=== PATIENT | male | born 1960 ===

== ENCOUNTER 2017-02-19 12:48 | Inpatient (IN) ==
[2017-02-19] MEDS ORDERED: SODIUM CHLORIDE 0.9% 500 ML IV STA (13:19)
--- NOTE | 2017-02-19 13:42 | CT Report ---
CT of the head without contrast. Indication: Mental status changes. No prior study. There is generalized atrophy, advanced for the patient's age. There are prominent areas of low density in the periventricular white matter. There is a small focus of encephalomalacia measuring under a centimeter, adjacent to the left lateral ventricle frontal horn, there are areas of encephalomalacia within the thalami bilaterally. There is a small area of encephalomalacia in the periventricular white matter on the right. A similar small hypodensity is seen in the right aspect of the valeri. There is no mass effect or midline shift. There is no evidence of acute hemorrhage. No cortical infarcts are seen at this time. The calvarium is intact. There is mucosal thickening in both maxillary, both ethmoid, and the left frontal sinus. The mastoid air cells are clear. Impression: 1. Generalized atrophy, advanced for the patient's age. 2. White matter changes as described above likely consistent with chronic microvascular ischemia. It is advanced for the patient's age, and that could be due to chronic diabetes or uncontrolled hypertension. Chronic lacunar infarcts are seen in the basal ganglia, thalamus, and right aspect of the valeri. 3. Note that in a patient of this age, other causes for white matter low density should also be considered including vasculitis, and demyelinating processes as well as post viral and postinflammatory entities. The CT exam was performed using one or more of the following dose reduction techniques: Automated exposure control, adjustment of the mA and/or kV according to patient size, or use of iterative reconstruction technique. PROCEDURE INTERPRETED AT [facility] DEPARTMENT OF RADIOLOGY Final Report Signed by: Dr. Doerne Daly
--- NOTE | 2017-02-19 13:45 | XRay Report ---
Portable chest. Indication: Altered mental status. Comparison: July 27, 2011. The heart is normal in size. The pulmonary vasculature is normal. The lung pulliam are clear. Degenerative changes of the spinal column and shoulders. Impression: No acute abnormality. PROCEDURE INTERPRETED AT [facility] DEPARTMENT OF RADIOLOGY Final Report Signed by: Dr. Dorene Daly
[2017-02-19 14:01] LABS: ABG Base Excess -4.8 MMOL/L (-2.5-2.5); ABG HCO3 20.4 MMOL/L (20-26); ABG Oxygen Saturation 92.9 % (95-100); ABG PCO2 34.7 MM HG (35-48); ABG PH 7.361 (7.35-7.45); ABG PO2 73.1 MM HG (80-95); ABG TCO2 15.6 MMOL/L (23-27); Allen Test Positive; Pt O2 Delivery Device Room Air
--- NOTE | 2017-02-19 14:06 | EKG Report ---
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
[2017-02-19 14:08] LABS: Basophils # 0.1 10*3/uL (0.0-0.2); Basophils % 0.3 % (0.0-0.8); Immature Granulocytes % 0.6 %; Lymphocytes # 1.7 10*3/uL (1.4-4.0); Lymphocytes % 10.5 % (21.2-54.2); Mean Corpuscular HGB Conc 33.5 GM/DL (32-36); Mean Corpuscular Hemoglobin 29 PG (27-34); Mean Corpuscular Volume 85.6 FL (87-102); Mean Platelet Volume 12.3 FL (9.6-12.0); Monocytes # 1.3 10*3/uL (0.11-0.8); Monocytes % 7.9 % (1.7-12.7); NRBC # 0.02 10*3/uL; Neutrophils # 12.9 10*3/uL (1.4-7.4); Neutrophils % 80.7 % (38.7-73.9); Platelet Count 163 T/CUMM (130-400); Red Blood Count 7.15 MC/CUMM (3.8-5.5); Red Cell Distribution Width 14.7 % (9.3-17.3)
[2017-02-19 14:11] LABS: Hematocrit 61.2 VOL% (42.0-52.0); Hemoglobin 20.5 GM/DL (14.0-18.0)
[2017-02-19 14:19] LABS: INR 1.2
[2017-02-19 14:29] LABS: Ammonia 18 UMOL/L (11-32)
[2017-02-19 14:37] LABS: Alanine Aminotransferase 33 U/L (16-61); Albumin 3.2 G/DL (3.4-5.0); Alkaline Phosphatase 74 U/L (45-117); Aspartate Amino Transferase 46 U/L (0-37); Blood Urea Nitrogen 51 MG/DL (7-18); CKMB % 2.5 %; Calcium 8.4 MG/DL (8.5-10.1); Glucose 299 MG/DL (74-106); Magnesium 2.4 MG/DL (1.8-2.4); Osmolality,Calculated 294.1 MOS/KG (273-304); Potassium 4.1 MMOL/L (3.5-5.1); Sodium 135 MMOL/L (136-145)
--- NOTE | 2017-02-19 14:37 | Emergency Department Note ---
Trey Newman Ashley, am scribing for, and in the presence of, Yoav Saldivar MD 13:30. Janna Newman Charles R, MD, personally performed the services described in this documentation, ascribed by Angi Yang in my presence, and it is both accurate and complete 436 . Arrival - Arrival Chief Complaint: Altered Mental Status ED Nursing Triage Note: pt was sent from [facility] for low bp and alt loc. pt took ultram 100mg and an extra of his bp meds this am. pt is slow to answer questions Mode of Arrival: Stretcher Limitations: No Limitations Source: Patient Time Seen by Provider: 02/19/17 13:07 - History of Present Illness HPI Narrative: Ms. Urias, a 56 year old male with left-sided hemiparesis secondary to prior CVA , presents from the [facility] with confusion and abnormal BP after reportedly taking 2 100mg Ultram and an extra dose of his BP medication. He presented to the clinic this morning to be evaluated for knee pain. In the ED, he is confused and reports only taking 1 Ultram. He denies any pain in the ED and reports that his left sided weakness is unchanged. There is no one present with the patient to determine the patient's mental baseline. Onset (ago): hour(s) (this morning) Consistency: constant Severity: moderate Quality: other (confusion) Home Medications: Home Medications Medication Instructions Recorded Confirmed Type Aspirin [Ecotrin] 81 mg PO DAILY 02/19/17 02/19/17 History Carvedilol [Coreg] 3.125 mg PO BID 02/19/17 02/19/17 History Diclofenac 1% Gel [Voltaren 1% Gel] 1 applic TOP QID 02/19/17 02/19/17 History Fosinopril Sodium 20 mg PO DAILY 02/19/17 02/19/17 History Glyburide/Metformin HCl 1 each PO DAILY 02/19/17 02/19/17 History [Glyburide-Metformin 5-500 mg] Simvastatin [Zocor] 10 mg PO BEDTIME 02/19/17 02/19/17 History Tramadol HCl [Tramadol Tab] 50 mg PO Q6H PRN 02/19/17 02/19/17 History Review of System - Review of System Constitutional: Absent: chills, fever Eyes: Absent: vision change Head/Ears/Nose/Throat: Present: see HPI Respiratory: Absent: cough, respiratory distress Cardiovascular: Absent: chest pain, palpitations Gastrointestinal: Absent: abdominal pain, vomiting, diarrhea Genitourinary male: Present: as per HPI Musculoskeletal: Absent: back pain, neck pain Neurological: Present: weakness (Chronic left sided hemiparesis), confusion. Absent: headache, numbness Psychiatric: Present: as per HPI Endocrine: Present: as per HPI Hematological/Lymphatic: Present: as per HPI Allergic/Immunologic: Present: as per HPI Medical,Surgical,& Family Hx - Medical History Cardio: History of: Hypertension Neurology: History of: Cerebrovascular Accident Endocrine: History of: Diabetes Mellitus (NIDDM) - Social History Smoking Status: Never smoker Frequency of Alcohol Use: None Type of Drug Use: None Exam Vital Signs: Vital Signs Temperature 97.0 F L 02/19/17 12:54 Pulse Rate 85 02/19/17 12:54 Respiratory Rate 18 02/19/17 12:55 Blood Pressure 156/105 02/19/17 12:54 O2 Sat by Pulse Oximetry 93 L 02/19/17 12:54 - General General appearance: alert, in no apparent distress - Head Head exam: Present: atraumatic, normocephalic - Eye Eye exam: Present: normal appearance, PERRL, EOMI - ENT ENT exam: Present: mucous membranes moist, normal external ear exam, other ( poor dentition) - Neck Neck exam: Present: normal inspection, full ROM, trachea midline. Absent: tenderness - Chest Chest inspection: Present: normal inspection, symmetric chest wall rise - Respiratory Respiratory exam: Present: normal lung sounds bilaterally. Absent: rales, rhonchi, wheezes - Cardiovascular Cardiovascular exam: Present: regular rate, normal rhythm, normal heart sounds - Abdominal Exam Abdominal exam: Present: soft. Absent: distention, tenderness, rigidity - Back Exam Back exam: Present: normal inspection, full ROM - Neurological Exam Neurological exam: Present: alert, CN II-XII intact, other (Slight L Pronator Drift and mild chronic LUE hemiparesis from previous CVA. Oriented to person, time, and season, but not to month or place. Right side motor strength is normal.) - Psychiatric Psychiatric exam: Present: normal mood - Skin Skin exam: Present: warm, dry, normal color Course - Consultations Consultation #1: Medicine Service Time: 14:30 (Discussed patient history and findings. Accepts admission.) Results - Labs CBC & BMP: 02/19/17 13:53 02/19/17 13:53 Lab Results: I have reviewed the patients labs - Diagnostic Findings Procedure: Chest x-ray: report reviewed by me (NAD), CT: report reviewed by me ( CT Head demonstrates NAD, but reports chronic microvascular changes, advanced atrophy for age, low density white matter that is advanced for his age, and chronic lacunar infarcts.) Disposition Clinical Impression: Altered mental status, Leukocytosis, Polycythemia, Renal failure, Hyperglycemia , Elevated troponin, History of CVA with left-sided weakness, Confusion Case discussed with: patient Disposition: Still a Patient Condition: Stable Time of Disposition: 14:37
[2017-02-19 14:39] LABS: Troponin I Only 0.139 NG/ML (0.00-0.045); Troponin I Only 0.145 NG/ML (0.00-0.045)
[2017-02-19 14:49] LABS: Prolactin 23.8 NG/ML
[2017-02-19 15:10] LABS: Sedimentation Rate-Westergren 2 MM/HR (0-20)
[2017-02-19 15:15] LABS: PT Patient Result 10.9 SECS
[2017-02-19 15:46] LABS: Apearance,Urine Slightly Hazy (Clear); Bacteria,Urine Occasional /HPF (Few); Bilirubin,Urine Negative (Negative); Blood, Urine Negative (Negative); Glucose,Urine (UA) 50 mg/dL (Negative); Ketones,Urine Negative (Negative); Mucus,Urine Occasional /LPF (Occasional); Nitrite,Urine Negative (Negative); Protein,Urine 100 MG/DL; Squamous Epithelial Cell,Urine Occasional /HPF (0-10); Urine Color Amber (Yellow); Urine Specific Gravity 1.018 (1.001-1.035); WBC,Urine 4 /HPF (0-6)
[2017-02-19 15:53] LABS: Barbiturates Screen,Urine Negative (Negative); Benzodiazepines Screen,Urine Negative (Negative); Cannabinoid Screen,Urine Negative (Negative); Opiate Screen,Urine Negative (Negative); Phencyclidine Screen,Urine Negative (Negative)
[2017-02-19] MEDS ORDERED: ACETAMINOPHEN 325 MG TABLET PO PRN (16:00)
[2017-02-19] MEDS ORDERED: DEXTROSE 50% 25 GM/50 ML VIAL IV PRN (16:00)
[2017-02-19] MEDS ORDERED: GLUCAGON 1 MG VIAL IM PRN (16:00)
[2017-02-19] MEDS ORDERED: LACTULOSE 20 GM/30 ML UDCUP PO PRN (16:00)
[2017-02-19] MEDS ORDERED: ONDANSETRON 4 MG/2 ML VIAL IV PRN (16:00)
[2017-02-19] MEDS ORDERED: ALBUTEROL/IPRATROPIUM 3 ML NEB RESP TX PRN (16:05)
--- NOTE | 2017-02-19 16:15 | Hospitalist History & Physical ---
Assessment and Plan (1) Altered mental status Status: Acute Assessment and plan: 1)altered mental status- he denies this and we have no one to provide baseline at this time. [facility] suggested that it may be due to too much tramadol. Hold pain meds or other sensorium altering meds. Monitor. consult neurology. consider MRI. get LP. check CO. DDX: meds, vascular dementia, TRAFFIC I MANAGER infection, other infection, ACS 2)polycythemia with leukocytosis- consult heme. He has had this for several years, non smoker. Check MARYLIN 2 mutation and EPO level. check renal US and carboxyhemogolbin also. 3)renal failure- of unknown duration- hydrate, recheck. get renal US, urine hsa glucose and protein. consult nephrology. 4)old strokes- he denies new symptoms. gets around ok. 5)elevated troponins- denies any cardiac type symptoms. tele monitor, get EKG in am, start asa, monitor BP, repeat troponin. 6)hypotension- hasn't been a problem here- monitor. 7)elevated lactic acid- does not appear to be septic, cultures drawn. repeat after hydration and may be due to renal failure. 8)leukocytosis/confusion- BCx drawn. No focus of infection seen, afebrile. with AMS could have TRAFFIC I MANAGER infection- order LP. begin vanc, ceftriaxone, and amp now. Current Visit: Yes (2) Diabetes Status: Acute Current Visit: Yes (3) H/O: stroke with residual effects Status: Acute Current Visit: Yes (4) Leukocytosis Status: Acute Current Visit: Yes (5) Polycythemia Status: Acute Current Visit: Yes (6) Renal failure Status: Acute Current Visit: Yes (7) Elevated troponin Status: Acute Current Visit: Yes History of Present Illness Chief complaint: "I'm fine" History of present illness: Mr. Urias is a 56 year old male sent from [facility] ER to our ER where I saw him for altered mental status. He denies any problems other than sore right kneecap. He was sent for confusion and altered mental status which he denies. His baseline is unknown as no comparative history was provided by [facility] and there is no one here with him. He says he lives with his blind girlfriend. He sees doctors at [facility]. He denies starting any new medicines. The [facility] said that he probably took too many tramadol and even extra BP pill today. On eval there he was hypotensive, though here he is not. He says he has had a stroke that left him with right side weakness. He was able to walk to bathroom and use it independently. He drags his right leg a bit. Denies cardiac history, no smoking, no alcohol, no illicit drugs. He is able to tell me he takes meds for diabetes and HTN, though not the names or doses. No dysuria or urinary hesitancy or frequency. No nausea, vomiting, diarrhea, or weight loss. No cough or shortness of breath. No chest pain, dizziness or palpitations. No headaches or seizures. No sinus congestion, no rhinnorhea. No rash, or pruritis. No history of cancer or anemia or blood problems. No history of clots. In Er his labs show renal failure or unknown chronicity- suspect primarily chronic. Also troponins mildly elevated. CT brain shows old stroke and microvascular changes and demyelinating disease and vasculitis included in the differential. He agrees to stay. Home Medications Medication Instructions Recorded Confirmed Type Aspirin [Ecotrin] 81 mg PO DAILY 02/19/17 02/19/17 History Carvedilol [Coreg] 3.125 mg PO BID 02/19/17 02/19/17 History Diclofenac 1% Gel [Voltaren 1% Gel] 1 applic TOP QID 02/19/17 02/19/17 History Fosinopril Sodium 20 mg PO DAILY 02/19/17 02/19/17 History Glyburide/Metformin HCl 1 each PO DAILY 02/19/17 02/19/17 History [Glyburide-Metformin 5-500 mg] Simvastatin [Zocor] 10 mg PO BEDTIME 02/19/17 02/19/17 History Tramadol HCl [Tramadol Tab] 50 mg PO Q6H PRN 02/19/17 02/19/17 History Medical,Surgical,& Family Hx - Medical History Cardio: History of: Hypertension Neurology: History of: Cerebrovascular Accident Endocrine: History of: Diabetes Mellitus (NIDDM) Hematology: History of: Blood Disorders (HCT was 20 on admit in 2010) - Family History Family History: Reports;: Family Diabetes Denies;: Family Cancer - Social History Smoking Status: Never smoker Frequency of Alcohol Use: None Type of Drug Use: None Marital Status: Single Lives With:: Significant Other Functional capacity: independent ambulation 12 point system: reviewed and no additional remarkable complaints except as stated Exam - Constitutional General appearance: no acute distress, over weight - Head Head exam: Present: other (mild right face droop) - Eye Eye exam: Present: EOMI. Absent: scleral icterus Pupils: Present: ELIDA - ENT ENT exam: Present: normal external ear exam. Absent: normal oropharynx (poor dentition) - Neck Neck exam: Present: other (no carotid bruits). Absent: lymphadenopathy, thyromegaly - Respiratory Respiratory exam: Present: clear to auscultation bilaterally - Cardiovascular Cardiovascular exam: Present: regular rate and rhythm. Absent: carotid bruit, diastolic murmur, systolic murmur - GI/Abdominal GI/Abdominal exam: Present: normal bowel sounds, soft. Absent: tenderness - Extremities Exam Extremities exam: Present: other (no hot swollen joints. No tenderness on palpation of right or left kneecap. ). Absent: calf tenderness, edema - Neurological Exam Neurological exam: Present: alert, other (right leg weaker/dragged a bit when he walked). Absent: oriented X3 (thought it was January, but knew year and where he was and how he got here. ), CN II-XII intact (right face weak (old per patient) and right leg weakness, mild right arm weakness) - Psychiatric Psychiatric exam: Present: normal affect, normal mood. Absent: agitated, anxious - Skin Skin exam: Present: warm, dry Results - Labs CBC & BMP: 02/19/17 13:53 02/19/17 13:53 Lab Results: I have reviewed the past 24 hour labs
[2017-02-19] MEDS ORDERED: VANCOMYCIN INJ 1,000 MG in SODIUM CHLORIDE 0.9% 250 ML IV SCH (17:00)
[2017-02-19] MEDS ORDERED: VANCOMYCIN INJ 1,250 MG in SODIUM CHLORIDE 0.9% 250 ML IV PRN (17:25)
--- NOTE | 2017-02-19 17:49 | Post Interventional Procedure ---
Pre-op diagnosis: altered mental status Post-op diagnosis: same Procedure: lumbar puncture with fluoro Radiologist: Nas Hallman Specimens: none sent (5 cc csf to lab) Estimated blood loss: none Complications: none Condition: stable Description/Findings: 1% local lidocaine after prep with betadine . 20 g needle at L3-4 with 5 cc clear csf collected
--- NOTE | 2017-02-19 17:55 | Interventional Radiology Rpt ---
Exam: IR lumbar puncture diagnostic Date: 02/19/2017 4:33 PM Indication: Altered mental status Comparison: CT brain 02/19/2017. BREONNA Hallman D.O. Fluoroscopy time 45 seconds Findings: The risk and benefits were explained family and informed consent was obtained by verbal phone contact. The patient was placed prone on examination table and the back was prepped with Betadine. 1% local lidocaine was administered. A 20-gauge needle was placed at the L3-4 level with 5 cc of clear CSF fluid collected. Opening pressure is approximately 3 to 4 cm of water without obvious elevated pressure noted. The needle was removed and a bandage was applied. The patient was transferred to his room in satisfactory condition. Estimate blood loss none Condition stable Specimen sent to lab for analysis Complications none Impression: 1. Satisfactory fluoroscopy-guided lumbar puncture. PROCEDURE INTERPRETED AT [facility] DEPARTMENT OF RADIOLOGY Final Report Signed by: Dr. Nas Hallman
[2017-02-19] MEDS: SODIUM CHLORIDE 0.45% 1,000 ML IV SCH (18:02)
[2017-02-19] MEDS: cefTRIAXone 2,000 MG in SODIUM CHLORIDE 0.9% 100 ML IV SCH (18:02)
[2017-02-19] MEDS: INSULIN LISPRO 100 UNIT/ML SUBCUT SCH ×2 (18:35→20:22)
--- NOTE | 2017-02-19 19:33 | Ultrasound Report ---
Exam: US renal Bilateral Date: 02/19/2017 4:25 PM Indication: Renal failure Comparison: None Findings: Right kidney. 9.8 x 5.2 x 5.6 cm. No hydronephrosis perinephric fluid collections with slight increased echogenicity. Left kidney. 9.2 x 5.8 x 5.2 cm. No hydronephrosis perinephric fluid collections with slight increased echogenicity Impression: 1. 1. Mild medical renal disease without obstructive uropathy present. Ultrasound images were stored and captured PROCEDURE INTERPRETED AT [facility] [place] DEPARTMENT OF RADIOLOGY Final Report Signed by: Dr. Nas Hallman
[2017-02-19] MEDS: AMPICILLIN INJ 2,000 MG in SODIUM CHLORIDE 0.9% 100 ML IV SCH (20:19)
[2017-02-19] MEDS: SIMVASTATIN 10 MG TABLET PO SCH (20:21)
[2017-02-19] MEDS: ENOXAPARIN 30 MG/0.3 ML SYRINGE SUBCUT SCH (20:21)
[2017-02-19] MEDS ORDERED: VANCOMYCIN INJ 1,500 MG in SODIUM CHLORIDE 0.9% 500 ML IV ONE (21:00)
[2017-02-19] MEDS ORDERED: CARVEDILOL 3.125 MG TABLET PO SCH (21:00)
[2017-02-19 21:09] LABS: Glucose,CSF 143 MG/DL (40-70)
[2017-02-19 21:20] LABS: Appearance,CSF Clear; Red Blood Cell,CSF < 1 C/CUMM; White Blood Cell,CSF 43 C/CUMM
[2017-02-19 21:21] LABS: Lymphocytes,CSF 78 %; Monocytes,CSF 22 %
[2017-02-19] MEDS: DICLOFENAC 1% GEL 100 GM TUBE TOP SCH (21:42)
[2017-02-20] MEDS: AMPICILLIN INJ 2,000 MG in SODIUM CHLORIDE 0.9% 100 ML IV SCH ×4 (02:08→20:52)
[2017-02-20] MEDS: cefTRIAXone 2,000 MG in SODIUM CHLORIDE 0.9% 100 ML IV SCH ×2 (06:15→18:00)
[2017-02-20 06:27] LABS: Basophils % 0.2 % (0.0-0.8); Eosinophils % 0.1 % (0.00-10.9); Hematocrit 57.9 VOL% (42.0-52.0); Hemoglobin 19.3 GM/DL (14.0-18.0); Immature Granulocytes % 0.6 %; Immature Granulocytes Absolute 0.11 #; Lymphocytes # 2.5 10*3/uL (1.4-4.0); Lymphocytes % 13.1 % (21.2-54.2); Mean Corpuscular HGB Conc 33.3 GM/DL (32-36); Mean Corpuscular Hemoglobin 28 PG (27-34); Mean Corpuscular Volume 84.2 FL (87-102); Mean Platelet Volume 12.9 FL (9.6-12.0); Monocytes # 1.6 10*3/uL (0.11-0.8); Monocytes % 8.6 % (1.7-12.7); Neutrophils # 14.7 10*3/uL (1.4-7.4); Neutrophils % 77.4 % (38.7-73.9); Platelet Count 158 T/CUMM (130-400); Red Blood Count 6.88 MC/CUMM (3.8-5.5); Red Cell Distribution Width 14.6 % (9.3-17.3)
[2017-02-20 06:52] LABS: Calcium 7.9 MG/DL (8.5-10.1); Magnesium 2.2 MG/DL (1.8-2.4); Osmolality,Calculated 303.5 MOS/KG (273-304); Potassium 3.9 MMOL/L (3.5-5.1)
[2017-02-20] MEDS ORDERED: ACYCLOVIR INJ 1,000 MG in SODIUM CHLORIDE 0.9% 250 ML IV SCH (08:00)
--- NOTE | 2017-02-20 08:00 | Hematology Consult ---
Assessment and Plan - Time spent with patient Time spent with patient: Greater than 30 minutes (1) Leukocytosis Status: Acute Assessment and plan: He is very lethargic this morning. It does not appear that his leukocytosis is related to a malignant event. Claude 2 mutation and EPO levels are pending. I will add HIV testing to his orders. His CSF is more consistent with some type of infectious process and he is well covered with broad-spectrum antibiotics. I will hold off on sending her peripheral blood flow cytometry or BCR ABL PCR for now. I do not see any urgent need for phlebotomy as a hemoglobin and hematocrit his level should not lead to any hyperviscosity state. I will continue to follow with you was in the hospital. Current Visit: Yes (2) Altered mental status Status: Acute Current Visit: Yes (3) H/O: stroke with residual effects Status: Acute Current Visit: Yes (4) Polycythemia Status: Acute Current Visit: Yes (5) Renal failure Status: Acute Current Visit: Yes History of Present Illness - Consult Narrative History of present illness: Mr. Urias is a 56 year [place] male with a history of CVA and what appears to be chronic kidney disease who was admitted with altered mental status. Lumbar puncture has been done that show pleocytosis with increased monocytes and lymphocytes. Cultures are pending. CT of his head showed only chronic microvascular changes but no acute findings. Hematology has been consulted for elevated white blood cell count and elevated hematocrit. Differential in his white blood cell count is predominantly neutrophils and monocytes. His hematocrit was around 60 upon admission. There is no atypical blasts noted on the peripheral smear. Claude 2 mutation and EPO levels have been ordered. The patient is unable to provide any history as he is very lethargic this morning. CC: Esperanza Tovar MD - Home Medications and Allergies Home Medications: Home Medications Medication Instructions Recorded Confirmed Type Aspirin [Ecotrin] 81 mg PO DAILY 02/19/17 02/19/17 History Carvedilol [Coreg] 3.125 mg PO BID 02/19/17 02/19/17 History Diclofenac 1% Gel [Voltaren 1% Gel] 1 applic TOP QID 02/19/17 02/19/17 History Fosinopril Sodium 20 mg PO DAILY 02/19/17 02/19/17 History Glyburide/Metformin HCl 1 each PO DAILY 02/19/17 02/19/17 History [Glyburide-Metformin 5-500 mg] Simvastatin [Zocor] 10 mg PO BEDTIME 02/19/17 02/19/17 History Tramadol HCl [Tramadol Tab] 50 mg PO Q6H PRN 02/19/17 02/19/17 History Allergies/Adverse Reactions: Allergies Allergy/AdvReac Type Severity Reaction Status Date / Time No Known Allergies Allergy Unverified 02/19/17 16:41 Medical,Surgical,& Family Hx - Medical History Cardio: History of: Hypertension Neurology: History of: Cerebrovascular Accident No history of: Seizures Endocrine: History of: Diabetes Mellitus (NIDDM) Hematology: History of: Blood Disorders (HCT was 20 on admit in 2010) - Family History Family History: Reports;: Family Diabetes Denies;: Family Cancer - Social History Smoking Status: Never smoker Frequency of Alcohol Use: None Type of Drug Use: None ROS unobtainable: due to mental status Exam - Constitutional Vitals: Period Temp Pulse Resp BP Sys/Spear Pulse Ox Last 24 Hr 96.1 F-97 F 88-97 18-20 107-114/60-70 88-94 General appearance: normal weight, mild distress - Head Head Exam: Present: normocephalic, atraumatic - ENT ENT exam: Present: normal exam - Neck Neck exam: Absent: lymphadenopathy, thyromegaly - Respiratory Respiratory exam: Present: CTAB. Absent: wheezes - Cardiovascular Cardiovascular exam: Absent: JVD - GI/Abdominal GI/Abdominal exam: Present: soft. Absent: ascites, firm, mass - Neurological Exam Neurological exam: Present: altered - Skin Skin exam: Present: other (Cool and damp to the touch) Results - Labs CBC & BMP: 02/20/17 05:48 02/20/17 05:48 Lab Results: I have reviewed the past 24 hour labs - Diagnostic Findings Procedure: CT: report reviewed by me
[2017-02-20] MEDS ORDERED: SODIUM CHLORIDE 0.9% 1,000 ML IV ONE ×4 (08:07→17:51)
--- NOTE | 2017-02-20 08:34 | Hospitalist Progress Note ---
Assessment and Plan - Time spent with patient Time spent with patient: Greater than 30 minutes (1) Altered mental status Status: Acute Assessment and plan: Altered mental status--patient is more lethargic this morning. He will open his eyes to pain. All his pain meds and other sensorium altering meds have been inhaled. Neurology consult is pending. Ammonia level is normal. LP is showing 43 white blood cells, 78 lymphocytes, 22 monocytes, glucose 143 and total protein 84. Patient is on ampicillin, ceftriaxone, vancomycin,and acyclovir. Due to the number of antibiotics patient is on we will order a PICC line for today. Polycythemia with leukocytosis--Dr. Smart from hematology has seen patient this morning. He feels the leukocytosis is not related to a malignant event. He added HIV testing to his Claude 2 mutation and EPO levels. He feels no need for urgent phlebotomy as the hemoglobin and hematocrit level should not lead to any hyperviscosity state. His H&H has minimally dropped this morning. This is most likely due to volume resuscitation. Patient's white count has also risen from 16-19 overnight. Renal failure--patient's creatinine has risen from 3.4-4.2 this morning. His renal ultrasound is showing mild medical renal disease without obstructive uropathy. Sanchez has also been placed. Dr. Best from nephrology has been consulted. Elevated troponins--repeat troponins for this morning are pending. Aspirin has been started, continue to monitor his blood pressure. Hypotension--patient had a period of hypotension with lethargy this morning. His blood pressure seems responding to IV fluids. He is already received 1 L of normal saline and he will get another. Elevated lactic acid--patient's lactic acid has decreased from 4.1 to 2.5. Patient is continuing to get further IV fluids and volume resuscitation. he is on broad-spectrum antibiotics as well. Leukocytosis/confusion--blood cultures are negative. Patient is afebrile. He does look to have some kind of viral or bacterial meningitis per LP results. Patient is on bike, ceftriaxone, ampicillin, and acyclovir has been started this morning. Care has been coordinated with Dr. Tovar. Further recommendations to follow. Current Visit: Yes (2) Leukocytosis Status: Acute Current Visit: Yes (3) Polycythemia Status: Acute Current Visit: Yes (4) Renal failure Status: Acute Current Visit: Yes (5) Elevated troponin Status: Acute Current Visit: Yes (6) Diabetes Status: Acute Current Visit: Yes (7) H/O: stroke with residual effects Status: Acute Current Visit: Yes Hospitalist: Subjective Interval history: Called to the floor by nursing w pt cold and clammy w hypotension. pt was given a liter of ivf and he did seem to respond to this. pt will open eyes to pain. sanchez was placed w some moderate urine output. pt lethargic otherwise. Exam - Constitutional Vitals: Period Temp Pulse Resp BP Sys/Spear Pulse Ox Last 24 Hr 96.1 F-97 F 88-97 18-20 107-114/60-70 88-94 Exam: 56NAM, lethargic, opens eyes to pain chest clear cv rrr abd soft, nt ext no edema Results - Labs CBC & BMP: 02/20/17 05:48 02/20/17 05:48 Lab Results: I have reviewed the past 24 hour labs - Diagnostic Findings Procedure: Ultrasound: report reviewed by me (Mild medical renal disease without obstructive uropathy)
[2017-02-20 08:35] LABS: ABG Base Excess -7.1 MMOL/L (-2.5-2.5); ABG HCO3 18.8 MMOL/L (20-26); ABG Oxygen Saturation 95.2 % (95-100); ABG PCO2 30.4 MM HG (35-48); ABG PH 7.354 (7.35-7.45); ABG PO2 84.9 MM HG (80-95); ABG TCO2 13.6 MMOL/L (23-27); Allen Test Positive
[2017-02-20] MEDS: INSULIN LISPRO 100 UNIT/ML SUBCUT SCH ×4 (08:59→20:55)
[2017-02-20] MEDS ORDERED: amLODIPine 10 MG TABLET PO SCH (09:00)
[2017-02-20] MEDS: DICLOFENAC 1% GEL 100 GM TUBE TOP SCH ×2 (09:20→14:02)
[2017-02-20] MEDS: PANTOPRAZOLE 40 MG TABLET PO SCH (09:20)
[2017-02-20 09:22] LABS: HIV Antigen/Antibody Result Nonreactive (Nonreactive)
[2017-02-20] MEDS: SODIUM CHLORIDE 0.45% 1,000 ML IV SCH (09:26)
--- NOTE | 2017-02-20 09:37 | EKG Report ---
Stationary ECG Study 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
[2017-02-20 09:41] LABS: CKMB % 3.4 %
[2017-02-20 09:42] LABS: Troponin I Only 0.1 NG/ML (0.00-0.045)
[2017-02-20] MEDS: ASPIRIN EC 81 MG TABLET PO SCH (11:40)
[2017-02-20] MEDS: SODIUM CHLORIDE 0.9% 1,000 ML IV SCH ×4 (11:43→22:45)
--- NOTE | 2017-02-20 12:42 | Nephrology Consult Note ---
History of Present Illness Chief complaint: acute on chronic renal failure History of present illness: Mr. Urias is a 56 year old male whom we are asked to see with a rising creatinine he presented with an altered mental status and has been hypotensive, undergone an LP with findings of a pleocytosis and is on multiple antibiotics and antivirals to cover potential etiologies of meningitis. Creatinine yesterday was 3-1/2 today is 4-1/2. Blood pressure when we examining was 85 systolic and he is receiving IV saline. He is obtunded and exhibiting Segundo-Burns respirations. His eyes deviate to the right and the gaze is conjugate. He has no peripheral edema. His chest is clear and his heart without rub or gallop. His abdomen is soft and nontender. Ultrasound is demonstrated no obstruction. Baseline renal function is not known. Impression acute superimposed on probable chronic renal impairment #2 underlying diabetes mellitus #3 [employer] infection question etiology Plan follow vancomycin levels and dose adjust as renal function worsens. To dose adjust acyclovir Home Medications Medication Instructions Recorded Confirmed Type Aspirin [Ecotrin] 81 mg PO DAILY 02/19/17 02/19/17 History Carvedilol [Coreg] 3.125 mg PO BID 02/19/17 02/19/17 History Diclofenac 1% Gel [Voltaren 1% Gel] 1 applic TOP QID 02/19/17 02/19/17 History Fosinopril Sodium 20 mg PO DAILY 02/19/17 02/19/17 History Glyburide/Metformin HCl 1 each PO DAILY 02/19/17 02/19/17 History [Glyburide-Metformin 5-500 mg] Simvastatin [Zocor] 10 mg PO BEDTIME 02/19/17 02/19/17 History Tramadol HCl [Tramadol Tab] 50 mg PO Q6H PRN 02/19/17 02/19/17 History Allergies Allergy/AdvReac Type Severity Reaction Status Date / Time No Known Allergies Allergy Unverified 02/19/17 16:41 Medical,Surgical,& Family Hx - Medical History Cardio: History of: Hypertension Neurology: History of: Cerebrovascular Accident No history of: Seizures Endocrine: History of: Diabetes Mellitus (NIDDM) Hematology: History of: Blood Disorders (HCT was 20 on admit in 2010) - Family History Family History: Reports;: Family Diabetes Denies;: Family Cancer - Social History Smoking Status: Never smoker Frequency of Alcohol Use: None Type of Drug Use: None Review of Systems 12 point system: reviewed and no additional remarkable complaints except as stated Exam - Vital Signs Vital signs: Period Temp Pulse Resp BP Sys/Spear Pulse Ox Last 24 Hr 96.1 F-97.8 F 69-97 12-25 86-114/55-70 88-94 - General Appearance General appearance: well-developed, well-nourished, appears started age EENT: ATNC Neck: no JVD, no thyromegaly, no carotid bruit, supple Respiratory: no kyphosis, no scoliosis Cardiology: no murmurs, no rub, no gallops, no edema, regular rate, regular rhythm, normal S1, normal S2 Gastrointestinal: normoactive bowel sounds, no tenderness, no guarding, no organomegaly Integumentary: no rash, warm and dry Neurologic: no focal deficit, no asterixis, alert and oriented x3, reflexes 2+ and symmetric, gait normal, strength 5/5, obtunded Musculoskeletal: no deformities (Segundo-Burns respiration), no erythema, no cyanosis, no clubbing Results - Labs CBC & BMP: 02/20/17 05:48 02/20/17 05:48 Assessment and Plan (1) Renal failure Status: Acute Assessment and plan: Follow creatinine. Agree with fluid resuscitation in view of hypotension Current Visit: Yes
--- NOTE | 2017-02-20 13:39 | Anesthesia ---
Anesthesia Procedures - Intubation Time out performed intubation: Yes Sedative: other (Propofol) Mg given sedative: 120 Paralytic: Succinylcholine Mg given paralytic: 120 Laryngoscope: Burciaga (2) ET Tube Size: 8 ET Tube Uncuffed: No Tube Secured Depth (cm): 25 Tube Secured Location: teeth Tube Placement Confirmation: visualized tube passing through cords, equal breath sounds bilaterally, no breath sounds over epigastrium, confirmation detector color change Patient tolerated procedure intubation: well Intubation Complications: none Additional Commets: Called for emergency intubation per Dr. Tovar. Stephen procedure well. VSS
[2017-02-20 14:18] LABS: Calcium 6.7 MG/DL (8.5-10.1); Magnesium 1.8 MG/DL (1.8-2.4); Osmolality,Calculated 311.1 MOS/KG (273-304); Potassium 4.1 MMOL/L (3.5-5.1)
[2017-02-20] MEDS ORDERED: HEPARIN LOCK FLUSH 500 UNIT/5 ML SYRINGE IV ONE (14:22)
[2017-02-20] MEDS ORDERED: NOREPINEPHRINE 4 MG/4 ML VIAL IV ONE (14:22)
--- NOTE | 2017-02-20 14:30 | XRay Report ---
Portable chest. Indication: Endotracheal tube placement. Comparison: February 19, 2017. The heart is normal in size. The distal tip of the endotracheal tube is in the right mainstem bronchus. It needs to be retracted 4 to 5 cm. The distal tip of the nasogastric tube is at the GE junction. It needs to be advanced 5 to 6 cm. Mild hypoaeration change has developed at the left lung base. The pulmonary vasculature is normal. The lung pulliam are free of infiltrate. No pneumothorax or pleural effusion. Impression: Tube changes needed as described above. This was discussed with the patient's nurse in the CCU before dictation. Mild hypoaeration has developed at the left base. PROCEDURE INTERPRETED AT [facility] DEPARTMENT OF RADIOLOGY Final Report Signed by: Dr. Dorene Daly
[2017-02-20 14:54] LABS: ABG Base Excess -10.3 MMOL/L (-2.5-2.5); ABG HCO3 16.6 MMOL/L (20-26); ABG Oxygen Saturation 95.7 % (95-100); ABG PCO2 29.3 MM HG (35-48); ABG PH 7.309 (7.35-7.45); ABG PO2 94.1 MM HG (80-95); ABG TCO2 12.3 MMOL/L (23-27)
[2017-02-20] MEDS: PROPOFOL 1,000 MG/100 ML BOTTLE IV SCH (15:03)
[2017-02-20] MEDS: NOREPINEPHRINE 8 MG in SODIUM CHLORIDE 0.9% 242 ML IV SCH ×2 (15:04→16:28)
--- NOTE | 2017-02-20 15:28 | Neurology Consult Note ---
History of Present Illness History of present illness: Patient is unable to provide me any history since he is intubated. History basically obtained from the chart. Mr. Urias is a 56 year [place] male with a history of CVA, chronic kidney disease who was admitted with altered mental status. Lumbar puncture has been done that show total protein of 84, RBC less than 1, WBC 43, lymphocytes 78%, monocytes 22%, glucose 143. Cryptococcus antigen is negative. Gram stain is negative. CT of his head showed only chronic microvascular changes but no acute findings. Hematology has been consulted for elevated white blood cell count and elevated hematocrit. Differential in his white blood cell count is predominantly neutrophils and monocytes. His hematocrit was around 60 upon admission. There is no atypical blasts noted on the peripheral smear. Patient is not on acyclovir, Rocephin and ampicillin. Home Medications Medication Instructions Recorded Confirmed Type Aspirin [Ecotrin] 81 mg PO DAILY 02/19/17 02/19/17 History Carvedilol [Coreg] 3.125 mg PO BID 02/19/17 02/19/17 History Diclofenac 1% Gel [Voltaren 1% Gel] 1 applic TOP QID 02/19/17 02/19/17 History Fosinopril Sodium 20 mg PO DAILY 02/19/17 02/19/17 History Glyburide/Metformin HCl 1 each PO DAILY 02/19/17 02/19/17 History [Glyburide-Metformin 5-500 mg] Simvastatin [Zocor] 10 mg PO BEDTIME 02/19/17 02/19/17 History Tramadol HCl [Tramadol Tab] 50 mg PO Q6H PRN 02/19/17 02/19/17 History Allergies Allergy/AdvReac Type Severity Reaction Status Date / Time No Known Allergies Allergy Unverified 02/19/17 16:41 ROS unobtainable: due to endotracheal tube Medical,Surgical,& Family Hx - Medical History Cardio: History of: Hypertension Neurology: History of: Cerebrovascular Accident No history of: Seizures Endocrine: History of: Diabetes Mellitus (NIDDM) Hematology: History of: Blood Disorders (HCT was 20 on admit in 2010) - Family History Family History: Reports;: Family Diabetes Denies;: Family Cancer - Social History Smoking Status: Never smoker Frequency of Alcohol Use: None Type of Drug Use: None Exam - Constitutional Vitals: Period Temp Pulse Resp BP Sys/Spear Pulse Ox Last 24 Hr 96.1 F-97.8 F 69-117 12-28 78-138/54-89 85-100 Exam: GENERAL: Patient is in no acute distress. NECK: Neck is supple. There is no JVD. No carotid bruits present. No thyroid masses. CVS: First and second heart sounds are normal. There is no S3 present. Regular rate and rhythm. RESPIRATORY: Lungs are clear to auscultation without any rales or rhonchi. ABDOMEN: Soft and non-tender. Bowel sounds are present. There is no hepatosplenomegaly. EXT: There is no palpable edema. Peripheral pulses are present. Skin: No rashes Central Nervous system: General: On vent Speech: On vent Comprehension: Sedated Facial expressions: Normal Cranial Nerves: Pupils are equally reactive to light. Doll's head eye movements are positive. No facial asymmetry is seen. Motor: Bulk and Tone is normal. Strength cannot be assessed Sensory: Cannot be assessed Reflexes: 1+ and symmetrical Cerebellar function: Cannot be assessed Toes: Equivocal Gait: Cannot be assessed Results - Labs CBC & BMP: 02/20/17 05:48 02/20/17 13:43 Assessment and Plan (1) Aseptic meningitis Status: Acute Assessment and plan: Continue current antibiotic coverage for now We will make changes in the antibiotic once more test results are available. Send herpes PCR and TB PCR and CSF. Thank you for the consult Current Visit: Yes
--- NOTE | 2017-02-20 15:51 | Post Interventional Procedure ---
Pre-op diagnosis: Meningitis Post-op diagnosis: same Procedure: Rt subclav central line Flouroscopy: 0.1 min Radiologist: Thompson Vegas Anesthesia: local Specimens: none sent Estimated blood loss: none Complications: none Condition: critical
--- NOTE | 2017-02-20 16:05 | Interventional Radiology Rpt ---
IR cvc insert nt >5, US guide vascular access Indication: Meningitis. Long-term IV antibiotics. CENTRAL LINE Description: A formal timeout was performed. Maximum sterile barrier technique was used. Sonographic evaluation of the right upper chest wall demonstrates patent and compressible subclavian vein. The chest wall was prepped and draped in sterile fashion. 3 cc 1% lidocaine was administered subcutaneously. Under sonographic guidance, a micropuncture needle was advanced into the vein. A captured sonographic image documents the position of the needle. Needle was exchanged over a wire for a vascular dilator. A triple lumen central line was advanced until the tip was at the RA-SVC junction. The catheter depth was noted to be 18 cm. The position of the catheter was confirmed with fluoroscopic guidance and an image stored in PACS. The wire was removed. All 3 ports of the central line were aspirated and flushed with heparinized saline. The device was secured with suture, and a sterile dressing applied. Fluoroscopy: 0.1 minute. 5 captured fluoroscopic images. Impression: 1. Central ready for immediate use. Routine catheter care. 2. After adjustment, endotracheal tube on the final image 4 cm cephalad of harper. PROCEDURE INTERPRETED AT [facility] DEPARTMENT OF RADIOLOGY Final Report Signed by: Thompson Vegas M.D.
--- NOTE | 2017-02-20 18:15 | Pulmonology Consult Note ---
History of Present Illness Chief complaint: Mechanical ventilation. Meningitis. History of present illness: Mr. Urias is a 56 year old male whom I been asked to see in pulmonary consultation to manage his mechanical ventilator. This patient was admitted with altered mental status. He quickly became obtunded. He has had a lumbar puncture. He has meningitis. Organism is not identified yet. He can no longer protect his airway and he required intubation and mechanical ventilation. The remainder review of systems is negative. Allergies. None. Home medicines. See below Hospital medicines. See below Past history high blood pressure CVA [id number] diabetes mellitus hyperlipidemia. Family history is positive for diabetes. Social history. Never smoked. Does not use alcohol. Single. Chest x-ray. My interpretation. Heart size is normal. Pulmonary arteries are normal both hilar areas contain benign calcifications. No definite infiltrates , no masses, no congestive heart failure. ABGs. Mechanical ventilation. FiO2 28%. PH 7.31, PCO2 29.3 PO2 94 and bicarb 16.6. Lab. White count is 19,077 segs 13 lymphs and 8 monos. H&H is 19.3/57.9. Platelets are 158,000. Electrolytes are normal. Creatinine is 4.30. BUN is 69. Glucoses are in the 200s. Hemoglobin A1c is elevated at 8.2. Initial lactic acid was high at 2.5. Calcium is low at 6.7. Magnesium is 1.8. Troponins are 0.139. Total protein is 7. Albumin is low at 3.2. Globulins are elevated at 3.8. Urine shows no evidence of infection. Cerebrospinal fluid cultures and blood cultures are negative. White count was 43 differential was 78 lymphocytes 22 monocytes total protein was elevated at 84 and glucose was 143 which is considerably below blood glucose Labs been reviewed Medicines have been reviewed Physical exam. Vital signs. See below Neck. Nuchal rigidity. Lymphatics. No submandibular cervical supraclavicular or epitrochlear adenopathy. Chest is clear Heart no gallop Abdomen. Nondistended. I did not hear any bowel sounds Extremities. Nothing to suggest deep venous thrombophlebitis. Psychiatric and neurological are impossible. The patient is obtunded. The remainder of the physical exam is noncontributory Impression. 1. Acute meningitis. Etiology undetermined 2. Altered mental status with inability to protect airways. Intubation mechanical ventilation were required. 3. High blood pressure 4. History of CVA 5. Diabetes mellitus. Poor control 6. See past history. Plan. 1. Agree with your orders. 2. Mechanical ventilation weaning protocol 3. Mechanical ventilation physical therapy protocol 4. Deep venous thrombophlebitis prevention protocol 5. Proton pump inhibitor protocol 6. Daily chest x-ray, ABGs, lab 7. See orders Home Medications Medication Instructions Recorded Confirmed Type Aspirin [Ecotrin] 81 mg PO DAILY 02/19/17 02/19/17 History Carvedilol [Coreg] 3.125 mg PO BID 02/19/17 02/19/17 History Diclofenac 1% Gel [Voltaren 1% Gel] 1 applic TOP QID 02/19/17 02/19/17 History Fosinopril Sodium 20 mg PO DAILY 02/19/17 02/19/17 History Glyburide/Metformin HCl 1 each PO DAILY 02/19/17 02/19/17 History [Glyburide-Metformin 5-500 mg] Simvastatin [Zocor] 10 mg PO BEDTIME 02/19/17 02/19/17 History Tramadol HCl [Tramadol Tab] 50 mg PO Q6H PRN 02/19/17 02/19/17 History Allergies Allergy/AdvReac Type Severity Reaction Status Date / Time No Known Allergies Allergy Unverified 02/19/17 16:41 Exam (Pulmonay) H&P - Constitutional Vitals: Period Temp Pulse Resp BP Sys/Spear Pulse Ox Last 24 Hr 96.1 F-97.8 F 69-117 12-28 77-138/50-89 85-100 Medical,Surgical,& Family Hx - Medical History Cardio: History of: Hypertension Neurology: History of: Cerebrovascular Accident No history of: Seizures Endocrine: History of: Diabetes Mellitus (NIDDM) Hematology: History of: Blood Disorders (HCT was 20 on admit in 2010) - Family History Family History: Reports;: Family Diabetes Denies;: Family Cancer - Social History Smoking Status: Never smoker Frequency of Alcohol Use: None Type of Drug Use: None Results - Labs CBC & BMP: 02/20/17 05:48 02/20/17 13:43
[2017-02-20] MEDS: SIMVASTATIN 10 MG TABLET PO SCH (20:52)
[2017-02-20] MEDS: ENOXAPARIN 30 MG/0.3 ML SYRINGE SUBCUT SCH (20:53)
[2017-02-21] MEDS: AMPICILLIN INJ 2,000 MG in SODIUM CHLORIDE 0.9% 100 ML IV SCH ×4 (02:17→20:44)
[2017-02-21 02:38] LABS: Basophils % 0.1 % (0.0-0.8); Hematocrit 52.9 VOL% (42.0-52.0); Hemoglobin 17.5 GM/DL (14.0-18.0); Immature Granulocytes % 0.7 %; Immature Granulocytes Absolute 0.18 #; Lymphocytes # 2.4 10*3/uL (1.4-4.0); Lymphocytes % 8.9 % (21.2-54.2); Mean Corpuscular HGB Conc 33.1 GM/DL (32-36); Mean Corpuscular Hemoglobin 29 PG (27-34); Mean Corpuscular Volume 87.4 FL (87-102); Mean Platelet Volume 12.5 FL (9.6-12.0); Monocytes # 2.5 10*3/uL (0.11-0.8); Neutrophils % 81.3 % (38.7-73.9); Platelet Count 157 T/CUMM (130-400); Red Blood Count 6.05 MC/CUMM (3.8-5.5); Red Cell Distribution Width 13.7 % (9.3-17.3); White Blood Count 27.1 T/CUMM (4-12)
[2017-02-21 03:16] LABS: Band Neutrophils 2 % (0-10); Lymphocytes 3 % (20-55); Myelocytes 2 %; Segmented Neutrophils 90 % (50-85)
[2017-02-21 03:17] LABS: Platelet Estimate Adequate; Total Cells Counted 100
[2017-02-21 03:19] LABS: Calcium 7.2 MG/DL (8.5-10.1); Potassium 4.1 MMOL/L (3.5-5.1)
[2017-02-21 03:39] LABS: ABG Base Excess -10.4 MMOL/L (-2.5-2.5); ABG HCO3 12.4 MMOL/L (20-26); ABG Oxygen Saturation 99.4 % (95-100); ABG PCO2 23.1 MM HG (35-48); ABG PH 7.349 (7.35-7.45); ABG TCO2 13.1 MMOL/L (23-27); Allen Test Positive; Pt O2 Delivery Device Ventilator
[2017-02-21 03:41] LABS: ABG PO2 524.7 MM HG (80-95)
[2017-02-21] MEDS: SODIUM CHLORIDE 0.9% 1,000 ML IV SCH ×5 (04:08→21:44)
[2017-02-21] MEDS: cefTRIAXone 2,000 MG in SODIUM CHLORIDE 0.9% 100 ML IV SCH ×2 (06:24→19:08)
[2017-02-21] MEDS: NOREPINEPHRINE 8 MG in SODIUM CHLORIDE 0.9% 242 ML IV SCH ×2 (06:28→14:20)
--- NOTE | 2017-02-21 07:45 | XRay Report ---
History respiratory failure Comparison 02/20/2017 Mediastinal contour is unchanged. The ET tube is been retracted with the tip now at T3-T4 No confluent infiltrate or pneumothorax seen Impression: Interval repositioning of ET tube otherwise little change PROCEDURE INTERPRETED AT [facility] DEPARTMENT OF RADIOLOGY Final Report Signed by: Dr. Jyothi Daly
--- NOTE | 2017-02-21 08:00 | Hematology Progress Note ---
Assessment and Plan (1) Altered mental status Status: Acute Current Visit: Yes (2) H/O: stroke with residual effects Status: Acute Current Visit: Yes (3) Polycythemia Status: Acute Current Visit: Yes (4) Renal failure Status: Acute Current Visit: Yes Hematology Subjective PN Interval history: Mr. Urias worsened yesterday. When I saw him in the morning he was very lethargic and seemed to become even more obtunded. He is now intubated and on the ventilator. We are still most concerned for some type of meningitis. Thus far all studies have been negative including cryptococcal antigen, bacterial cultures, and HIV studies. He is well covered with broad-spectrum antibiotics. His white blood cell count continues to rise but it is predominantly neutrophils with no visible blasts on the peripheral smear. I still see no reason to suspect a malignant process at this time. His hemoglobin continues to decrease down to normal ranges with IV fluids. Given that he is very sick and I do not have a good feel for the etiology, I will continue to follow him with you to help be certain that no malignant process is causing this. Exam - Constitutional Vitals: Period Temp Pulse Resp BP Sys/Spear Pulse Ox Last 24 Hr 97 F-98.1 F 69-117 12-94 77-151/49-107 85-100 General appearance: normal weight - Head Head Exam: Present: other (Positive ET tube) - Neck Neck exam: Absent: lymphadenopathy, thyromegaly - Respiratory Respiratory exam: Present: CTAB. Absent: wheezes - Cardiovascular Cardiovascular exam: Absent: irregular rhythm, JVD - GI/Abdominal GI/Abdominal exam: Present: soft. Absent: ascites, mass Results - Labs CBC & BMP: 02/21/17 02:24 02/21/17 02:00 Lab Results: I have reviewed the past 24 hour labs
--- NOTE | 2017-02-21 08:53 | Nephrology Progress Note ---
Nephrology - PN: Subj Interval history: Mr. Urias is seen in follow-up of his acute renal failure. Blood pressure is much better after fluid resuscitation and pressure support with levo fed. Chest x-ray demonstrates no evidence of volume overload. On physical exam he does have tight extremities but no pitting edema. He responds minimally but does seem to withdraw to noxious stimuli. Etiology of his meningitis is pending with cultures etc. He did have a predominance of lymphocytes in his CSF. I spoke with family member in the waiting area and he understands that Mr. Urias is quite ill and will require dialysis to bridge him through this illness. Will plan placement of a dialysis catheter and plan on beginning dialysis tomorrow. There is no immediate indication for dialysis today and will be better able to accommodate him tomorrow. Exam (PN)-Nephrology - Vital Signs Vital signs: Period Temp Pulse Resp BP Sys/Spear Pulse Ox Last 24 Hr 97 F-98.1 F 69-117 12-94 77-151/49-107 85-100 - Lab 02/21/17 02:24 02/21/17 02:00 Most recent lab results ABG pH 7.349 (7.35-7.45) L 02/21/17 03:30 ABG pCO2 23.1 MM HG (35-48) L 02/21/17 03:30 ABG pO2 524.7 MM HG (80-95) H 02/21/17 03:30 ABG HCO3 12.4 MMOL/L (20-26) L 02/21/17 03:30 ABG O2 Saturation 99.4 % (95-100) 02/21/17 03:30 Calcium 7.2 MG/DL (8.5-10.1) L 02/21/17 02:00 Magnesium 2.0 MG/DL (1.8-2.4) 02/21/17 02:00 Assessment and Plan (1) Renal failure Status: Acute Assessment and plan: Follow creatinine. Agree with fluid resuscitation in view of hypotension Current Visit: Yes
--- NOTE | 2017-02-21 09:47 | Neurology Progress Note ---
Neurology - PN : Subjective Interval history: Patient seems to be doing okay. No new problems reported. Still sedated on vent. WBC in the serum is 27.1 Exam (Progress Note) - Constitutional Vitals: Period Temp Pulse Resp BP Sys/Spear Pulse Ox Last 24 Hr 97 F-98.1 F 69-117 12-94 77-151/49-107 85-100 Exam: GENERAL: Patient is in no acute distress. NECK: Neck is supple. There is no JVD. No carotid bruits present. No thyroid masses. CVS: First and second heart sounds are normal. There is no S3 present. Regular rate and rhythm. RESPIRATORY: Lungs are clear to auscultation without any rales or rhonchi. ABDOMEN: Soft and non-tender. Bowel sounds are present. There is no hepatosplenomegaly. EXT: There is no palpable edema. Peripheral pulses are present. Skin: No rashes Central Nervous system: General: On vent Speech: On vent Comprehension: Sedated Facial expressions: Normal Cranial Nerves: Pupils are equally reactive to light. Doll's head eye movements are positive. No facial asymmetry is seen. Motor: Bulk and Tone is normal. Strength cannot be assessed Sensory: Cannot be assessed Reflexes: 1+ and symmetrical Cerebellar function: Cannot be assessed Toes: Equivocal Gait: Cannot be assessed Results - Labs CBC & BMP: 02/21/17 02:24 02/21/17 02:00 Assessment and Plan (1) Aseptic meningitis Status: Acute Assessment and plan: Continue current antibiotic coverage for now We will make changes in the antibiotic once more test results are available. Continue current supportive treatment Agree with repeating CAT scan and EEG Current Visit: Yes
[2017-02-21] MEDS: ASPIRIN EC 81 MG TABLET PO SCH (09:57)
[2017-02-21] MEDS: PANTOPRAZOLE 40 MG TABLET PO SCH (09:57)
[2017-02-21] MEDS: INSULIN LISPRO 100 UNIT/ML SUBCUT SCH ×3 (09:57→19:07)
[2017-02-21] MEDS: ACYCLOVIR INJ 1,000 MG in SODIUM CHLORIDE 0.9% 250 ML IV SCH (10:08)
--- NOTE | 2017-02-21 10:23 | Pulmonology Progress Note ---
Pulmonary - PN: Subj Interval history: This is a 56-year-old male whom I saw in pulmonary consultation on 02/20/2017. My impressions were. 1. Acute meningitis. Etiology undetermined 2. Altered mental status with inability to protect airways. Intubation mechanical ventilation were required. 3. High blood pressure 4. History of CVA 5. Diabetes mellitus. Poor control 6. See past history. 02/21/2017. Today's chest x-ray shows no infiltrates. There is no congestive heart failure. Endotracheal tube is in good position. ABGs on FiO2 of 100% shows a pH of 7.349, PCO2 23.1, PO2 of 524.7 and a bicarb of 12.4. Ventilator changes have been made in rate and an FiO2. Electrolytes are normal. Creatinine is 5.3. BUN is 89. H&H is 17.5/52.9. White count is 27,100 with 81 segs 9 lymphs and 9 monocytes. No positive cultures have been reported. Physical exam. Vital signs. See below Psychiatric/neurological. Patient has an altered mental status and cannot be awoken. Neck. No mass. Lymphatics. No submandibular cervical supraclavicular or epitrochlear adenopathy Chest. Mild loose large airway congestion Heart. No gallop Abdomen. Rare bowel sounds Extremities. Nothing to suggest deep venous thrombophlebitis. The remainder the physical exam is negative. Plan. 1. Agree with your orders. 2. Mechanical ventilation weaning protocol 3. Mechanical ventilation physical therapy protocol 4. Deep venous thrombophlebitis prevention protocol 5. Proton pump inhibitor protocol 6. Daily chest x-ray, ABGs, lab 7. See orders and see my note 02/21/2007 Exam (Progress Note) - Constitutional Vitals: Period Temp Pulse Resp BP Sys/Spear Pulse Ox Last 24 Hr 97 F-98.1 F 69-117 12-94 77-151/49-107 85-100 Results - Labs CBC & BMP: 02/21/17 02:24 02/21/17 02:00
--- NOTE | 2017-02-21 10:34 | Physician Query Form ---
CLICK EDIT DOCUMENT TO SELECT QUERY ANSWER --> OK --> SIGN Iris Shannon RN Clinical [employer] W) [phone] (f) [phone] [email or web address] PROVIDERS: Make your selection(s) from the choices in EACH section by typing an "x" and enter comments in the comment section. Please use your independent medical judgment in providing your response. This request does not imply that any particular answer is desired or expected. CLINICAL INDICATORS: (Providers should not edit this section) Pt. admitted with aseptic meningitis. Based on documentation of "Hypotension", BP=78/53. Pt. treated with Levophed and 2 Liter fluid bolus. Please clarify which, if any, of the following is the etiology of the above symptoms and treatment rendered: (x ) Septic shock ( ) Hypovolemic shock ( ) Cardiogenic shock ( ) Hemorrhagic shock ( ) Traumatic shock ( ) Shock due to, please specify etiology: ( ) Shock, unknown etiology ( ) Drug induced, please specify substance: ( ) Iatrogenic Hypotension ( ) Orthostatic Hypotension ( ) Hypotension, unknown etiology ( ) Other, please specify: ( ) Clinically unable to determine COMMENTS: Use of terms such as suspected, likely, or probable (associated with a specific diagnosis that is being evaluated, monitored, or treated as if it exists) are acceptable and can be restated in the discharge summary if not ruled out. MTDD
--- NOTE | 2017-02-21 10:41 | Physician Query Form ---
CLICK EDIT DOCUMENT TO SELECT QUERY ANSWER --> OK --> SIGN Iris Shannon RN Clinical Trust Mail Clerk W) [phone] (f) [phone] [email or web address]: Make your selection(s) from the choices in EACH section by typing an "x" and enter comments in the comment section. Please use your independent medical judgment in providing your response. This request does not imply that any particular answer is desired or expected. CLINICAL INDICATORS: (Providers should not edit this section) Based on documentation of "acute renal failure" and "hypotension", creatinine on admission of 3.40 and increased to 5.3 with a GFR of 12. Blood pressure of 78 /53. Pt. treated with IV Levophed. Clarify which of the following most accurately represents the patient's renal status: (x ) Acute renal failure ( ) Acute renal failure with necrosis ( ) tubular ( ) medullary ( ) cortical ( ) Other, please specify: ( ) Clinically unable to determine COMMENTS: Use of terms such as suspected, likely, or probable (associated with a specific diagnosis that is being evaluated, monitored, or treated as if it exists) are acceptable and can be restated in the discharge summary if not ruled out. MTDD
--- NOTE | 2017-02-21 12:31 | Nephrology Progress Note ---
Nephrology - PN: Subj Interval history: After sterile prep and local anesthesia, a right internal jugular dialysis catheter was placed under ultrasound guidance. Blood return from all 3 lumen. CVP was low. Chest x-rays pending. Catheter was advanced to 19 cm. Exam (PN)-Nephrology - Vital Signs Vital signs: Period Temp Pulse Resp BP Sys/Spear Pulse Ox Last 24 Hr 97 F-98.1 F 86-109 12-94 77-151/49-107 85-100 - Lab 02/21/17 02:24 02/21/17 02:00 Most recent lab results ABG pH 7.349 (7.35-7.45) L 02/21/17 03:30 ABG pCO2 23.1 MM HG (35-48) L 02/21/17 03:30 ABG pO2 524.7 MM HG (80-95) H 02/21/17 03:30 ABG HCO3 12.4 MMOL/L (20-26) L 02/21/17 03:30 ABG O2 Saturation 99.4 % (95-100) 02/21/17 03:30 Calcium 7.2 MG/DL (8.5-10.1) L 02/21/17 02:00 Magnesium 2.0 MG/DL (1.8-2.4) 02/21/17 02:00 Assessment and Plan (1) Renal failure Status: Acute Assessment and plan: Follow creatinine. Agree with fluid resuscitation in view of hypotension Current Visit: Yes
[2017-02-21] MEDS ORDERED: SODIUM CHLORIDE 0.9% 1,000 ML IV ONE (12:35)
[2017-02-21 13:31] LABS: CMV PCR Source CSF; Specimen Source CSF
--- NOTE | 2017-02-21 13:55 | XRay Report ---
Exam: XR chest 1V portable Date: 02/21/2017 1:04 PM Indication: Post dialysis catheter placement Comparison: 3:33 AM same date Technical: AP portable Findings: A right-sided subclavian catheter is present with distal tip superior vena cava. A right IJ dialysis catheter has been placed with the distal tip in the superior vena cava right atrial junction. Endotracheal tube at the level of mid clavicle. Nasogastric tube is demonstrated with: Of the tube over the neck with the distal tip located in the distal esophagus. External cardiac leads are present. Mediastinum is otherwise intact. Mild alveolar interstitial densities. No pneumothorax Impression: 1. Interval placement of a right-sided IJ dialysis catheter in good position 2. Stable position of the endotracheal tube in the right-sided subclavian catheter 3. Coiling of the nasogastric tube in the distal tip appears to be in the distal mid esophagus. Retraction repositioning of the tube may be beneficial Critical test report called to CCU at the time of dictation to the patient's nurse Karla Hoover PROCEDURE INTERPRETED AT [facility] DEPARTMENT OF RADIOLOGY Final Report Signed by: Dr. Nas Hallman
--- NOTE | 2017-02-21 14:13 | CT Report ---
Referring physician: Esperanza Tovar Exam: CT brain without contrast Date: February 21, 2017 Comparison: CT brain without contrast February 19, 2017 Reason: Altered mental status The patient is an inpatient who was admitted on February 19, 2017. Technique: Axial images of the head were obtained without the use of contrast. Total DLP was 914.6 mGy*cm. Findings: There is again nsin-il-[id number] generalized cerebral and cerebellar atrophy/volume loss. Scattered areas of low-attenuation are also again seen within the cerebral white matter bilaterally. This is nonspecific but likely represents chronic microvascular ischemic change. Less common considerations include a demyelinating process, vasculitis or viral process. Remote lacunar infarctions are again seen at the bilateral thalami, right basal ganglia/right periventricular white matter and possibly the right valeri. No hydrocephalus or midline shift is present. There is no evidence of recent intracranial hemorrhage, abnormal mass effect or an acute infarct infarction. No acute osseous process is seen. There is mucosal thickening within the ethmoid air cells, bilateral maxillary sinuses and sphenoid sinuses. There may be fluid within the right maxillary sinus. There is also opacification of the mastoid air cells bilaterally and probable fluid within the middle ear cavities. This could represent otomastoiditis. Impression: 1. No acute intracranial process is identified. 2. Chronic intracranial findings, similar to before. 3. Sinus disease as above, similar to before. 4. There is fluid within the mastoid air cells and middle ear cavities, not clearly seen on the previous study. This could represent otomastoiditis. The CT exam was performed using one or more of the following dose reduction techniques: Automated exposure control and adjustment of the mA and/or kV according to patient size. PROCEDURE INTERPRETED AT [facility] DEPARTMENT OF RADIOLOGY Final Report Signed by: Dr. Mian Campoverde
[2017-02-21] MEDS: PROPOFOL 1,000 MG/100 ML BOTTLE IV SCH (14:20)
--- NOTE | 2017-02-21 16:15 | Hospitalist Progress Note ---
Assessment and Plan - Time spent with patient Time spent with patient: Less than 30 minutes (1) Altered mental status Status: Acute Assessment and plan: Patient continues to be more lethargic. He opens his eyes to pain. Head CT negative. EEG results pending. Neurology is following. LP is showing 43 white blood cells, 78 lymphocytes, 22 monocytes, glucose 143 and total protein 84. Patient is on ampicillin, ceftriaxone, vancomycin,and acyclovir. Current Visit: Yes (2) Polycythemia Status: Acute Current Visit: Yes (3) Renal failure Status: Acute Assessment and plan: Creatinine has risen to 5.4. Dr. Best is following. Dialysis catheter placed in the right IJ with intent to start dialysis tomorrow. Current Visit: Yes (4) Elevated troponin Status: Acute Current Visit: Yes (5) Diabetes Status: Acute Assessment and plan: Glucose 223. Continue current treatment plan. Current Visit: Yes (6) H/O: stroke with residual effects Status: Acute Current Visit: Yes Hospitalist: Subjective Interval history: Patient seen and examined today. He is obtunded and intubated on the ventilator ; however, he did not receive any propofol today. We still have no etiology for his meninigitis, though he remains covered with broad-spectrum antibiotics. Head CT revealed no acute intracranial process. Nephrology saw him today and plans to move forward with dialysis tomorrow. A double lumen catheter was placed today in the right IJ. We will continue to work with other consultants to further evaluate and manage. Exam - Constitutional Vitals: Period Temp Pulse Resp BP Sys/Spear Pulse Ox Last 24 Hr 97 F-98.1 F 86-101 14-94 77-151/49-107 94-100 General appearance: over weight Exam: General appearance: overweight, lethargic, obtunded - Head Head exam: Present: normocephalic, atraumatic - Eye Eye exam: Present: EOMI. Absent: conjunctival injection, nystagmus - Neck Neck exam: Present: normal inspection. Absent: lymphadenopathy, thyromegaly - Respiratory Respiratory exam: Present: clear to auscultation bilaterally. Absent: rales, rhonchi, wheezes - Cardiovascular Cardiovascular exam: Present: regular rate and rhythm. Absent: carotid bruit, gallop, rubs - GI/Abdominal GI/Abdominal exam: Present: soft, nontender Absent: ascites, distended, mass - Extremities Exam Extremities exam: Present: normal inspection Absent: edema - Back Exam Back exam: Absent: CVA tenderness (L), CVA tenderness (R) - Neurological Exam Neurological exam: Present: lethargic, obtunded - Skin Skin exam: Present: normal color, warm, dry - Head Head exam: Present: normocephalic Results - Labs CBC & BMP: 02/21/17 02:24 02/21/17 02:00 Lab Results: I have reviewed the past 24 hour labs - Diagnostic Findings Procedure: Chest x-ray: image reviewed by me, report reviewed by me, CT: image reviewed by me, report reviewed by me
[2017-02-21] MEDS: ENOXAPARIN 30 MG/0.3 ML SYRINGE SUBCUT SCH (20:41)
[2017-02-21] MEDS: SIMVASTATIN 10 MG TABLET PO SCH (20:42)
[2017-02-22] MEDS: INSULIN LISPRO 100 UNIT/ML SUBCUT SCH ×4 (01:03→18:01)
[2017-02-22] MEDS: AMPICILLIN INJ 2,000 MG in SODIUM CHLORIDE 0.9% 100 ML IV SCH ×4 (01:04→20:21)
[2017-02-22 03:05] LABS: Calcium 7.4 MG/DL (8.5-10.1); Magnesium 2.2 MG/DL (1.8-2.4); Osmolality,Calculated 334.7 MOS/KG (273-304); Potassium 3.8 MMOL/L (3.5-5.1)
[2017-02-22 03:09] LABS: ABG HCO3 16.1 MMOL/L (20-26); ABG Oxygen Saturation 99.2 % (95-100); ABG PCO2 26.4 MM HG (35-48); ABG TCO2 11.4 MMOL/L (23-27); Allen Test Positive; Pt O2 Delivery Device Ventilator
[2017-02-22 03:12] LABS: Phosphorous 6.4 MG/DL (2.5-4.9); Prealbumin 5.8 MG/DL (20-40)
[2017-02-22] MEDS: cefTRIAXone 2,000 MG in SODIUM CHLORIDE 0.9% 100 ML IV SCH ×2 (06:00→18:02)
[2017-02-22] MEDS: SODIUM CHLORIDE 0.9% 1,000 ML IV SCH ×2 (06:28→07:54)
--- NOTE | 2017-02-22 07:46 | XRay Report ---
Exam: XR chest 1V portable Date: 02/22/2017 4:00 AM Indication: Respiratory failure Comparison: 02/21/2017 Technical: AP Findings: Endotracheal tube at the level just above the mid clavicle. Nasogastric tube traverses into the stomach. External cardiac leads are present. A right-sided subclavian catheter and a right IJ catheter are present. Mild cardiomegaly. No pneumothorax. No significant effusions present. Mediastinum is intact Impression: 1. Stable appearance of life support tubing 2. Mild cardiomegaly without overt decompensation infiltrates or effusions with minimal atelectatic change in the right base PROCEDURE INTERPRETED AT [facility] DEPARTMENT OF RADIOLOGY Final Report Signed by: Dr. Nas Hallman
--- NOTE | 2017-02-22 08:18 | Nephrology Progress Note ---
Nephrology - PN: Subj Interval history: Mr. Urias is seen in follow-up of his acute renal failure. He has been fluid resuscitated and is now making some urine but BUN and creatinine continue to rise. He will be dialyzed today. He has tight extremities from excess fluid. Yesterday his central venous pressures were low. Will slow his IV rate. Today will dialyze and plan to do it tomorrow and remove fluid as tolerated. His blood pressure is 190/100. He remains unresponsive in the etiology of his meningitis is not known yet but multiple viral studies are pending Exam (PN)-Nephrology - Vital Signs Vital signs: Period Temp Pulse Resp BP Sys/Spear Pulse Ox Last 24 Hr 97.1 F-98.3 F 90-114 10-27 82-198/63-112 97-100 - Lab 02/21/17 02:24 02/22/17 01:52 Most recent lab results ABG pH 7.320 (7.35-7.45) L 02/22/17 02:49 ABG pCO2 26.4 MM HG (35-48) L 02/22/17 02:49 ABG pO2 200.0 MM HG (80-95) H 02/22/17 02:49 ABG HCO3 16.1 MMOL/L (20-26) L 02/22/17 02:49 ABG O2 Saturation 99.2 % (95-100) 02/22/17 02:49 Calcium 7.4 MG/DL (8.5-10.1) L 02/22/17 01:52 Phosphorus 6.4 MG/DL (2.5-4.9) H 02/22/17 01:52 Magnesium 2.2 MG/DL (1.8-2.4) 02/22/17 01:52 Assessment and Plan (1) Renal failure Status: Acute Assessment and plan: Follow creatinine. Agree with fluid resuscitation in view of hypotension Current Visit: Yes
--- NOTE | 2017-02-22 09:11 | Hospitalist Progress Note ---
Assessment and Plan (1) Altered mental status Status: Acute Assessment and plan: Patient continues to be more lethargic. He opens his eyes to pain. Head CT negative. EEG results pending. Neurology is following. LP is showing 43 white blood cells, 78 lymphocytes, 22 monocytes, glucose 143 and total protein 84. Patient is on ampicillin, ceftriaxone, vancomycin,and acyclovir. 02/22/2017. Patient continues to be obtunded. Current Visit: Yes (2) Polycythemia Status: Acute Current Visit: Yes (3) Renal failure Status: Acute Assessment and plan: Creatinine has risen to 5.4. Dr. Best is following. Dialysis catheter placed in the right IJ with intent to start dialysis tomorrow. 02/22/2017. Patient will be started on dialysis today. Current Visit: Yes (4) Elevated troponin Status: Acute Current Visit: Yes (5) Diabetes Status: Acute Assessment and plan: Continue current treatment plan. Current Visit: Yes (6) H/O: stroke with residual effects Status: Acute Current Visit: Yes Hospitalist: Subjective Interval history: Patient seen and examined today. No acute changes overnight. Blood pressure remains elevated at 198/112. Patient no longer on Levophed. Patient has gained approximately 15 kg overnight. While urine output has increased, patient has received significantly more fluids than he has put out. Seen by nephrology today and will initiate dialysis. Exam - Constitutional Vitals: Period Temp Pulse Resp BP Sys/Spear Pulse Ox Last 24 Hr 97.1 F-98.3 F 90-114 10-27 82-198/63-112 97-100 Exam: General appearance: overweight, lethargic, obtunded - Head Head exam: Present: normocephalic, atraumatic - Eye Eye exam: Present: EOMI. Absent: conjunctival injection, nystagmus - Neck Neck exam: Present: normal inspection. Absent: lymphadenopathy, thyromegaly - Respiratory Respiratory exam: Present: clear to auscultation bilaterally. Absent: rales, rhonchi, wheezes - Cardiovascular Cardiovascular exam: Present: regular rate and rhythm. Absent: carotid bruit, gallop, rubs - GI/Abdominal GI/Abdominal exam: Present: soft, nontender Absent: ascites, distended, mass - Extremities Exam Extremities exam: Present: normal inspection Absent: edema - Back Exam Back exam: Absent: CVA tenderness (L), CVA tenderness (R) - Neurological Exam Neurological exam: Present: lethargic, obtunded - Skin Skin exam: Present: normal color, warm, dry Results - Labs CBC & BMP: 02/21/17 02:24 02/22/17 01:52 Lab Results: I have reviewed the past 24 hour labs
[2017-02-22] MEDS: PANTOPRAZOLE 40 MG TABLET PO SCH (09:22)
[2017-02-22] MEDS: ACYCLOVIR INJ 1,000 MG in SODIUM CHLORIDE 0.9% 250 ML IV SCH (09:22)
[2017-02-22] MEDS: ASPIRIN EC 81 MG TABLET PO SCH (09:23)
--- NOTE | 2017-02-22 11:00 | Pulmonology Progress Note ---
Pulmonary - PN: Subj Interval history: This is a 56-year-old male whom I saw in pulmonary consultation on 02/20/2017. My impressions were. 1. Acute meningitis. Etiology undetermined 2. Altered mental status with inability to protect airways. Intubation mechanical ventilation were required. 3. High blood pressure 4. History of CVA 5. Diabetes mellitus. Poor control 6. See past history. 02/21/2017. Today's chest x-ray shows no infiltrates. There is no congestive heart failure. Endotracheal tube is in good position. ABGs on FiO2 of 100% shows a pH of 7.349, PCO2 23.1, PO2 of 524.7 and a bicarb of 12.4. Ventilator changes have been made in rate and an FiO2. Electrolytes are normal. Creatinine is 5.3. BUN is 89. H&H is 17.5/52.9. White count is 27,100 with 81 segs 9 lymphs and 9 monocytes. No positive cultures have been reported. 02/22/2017. Change in orders have been noted. Patient is on stage I of the weaning protocol. Chest x-ray is stable. ABGs are fine. There are no positive cultures. Electrolytes are normal. Creatinine is 6.1 with a BUN of 114. Calcium is low in phosphorus is elevated. Patient is beginning to wake up a little bit. Physical exam. Vital signs. See below Psychiatric/neurological. Patient has an altered mental status. Neck. No mass. Lymphatics. No submandibular cervical supraclavicular or epitrochlear adenopathy Chest. Mild loose large airway congestion Heart. No gallop Abdomen. Rare bowel sounds Extremities. Nothing to suggest deep venous thrombophlebitis. The remainder the physical exam is negative. Plan. 1. Agree with your orders. 2. Mechanical ventilation weaning protocol 3. Mechanical ventilation physical therapy protocol 4. Deep venous thrombophlebitis prevention protocol 5. Proton pump inhibitor protocol 6. Daily chest x-ray, ABGs, lab 7. See orders and see my note 02/22/2007 Exam (Progress Note) - Constitutional Vitals: Period Temp Pulse Resp BP Sys/Spear Pulse Ox Last 24 Hr 97.1 F-98.3 F 90-139 10-27 82-198/63-114 97-100 Results - Labs CBC & BMP: 02/21/17 02:24 02/22/17 01:52
[2017-02-22] MEDS ORDERED: VANCOMYCIN INJ 750 MG in SODIUM CHLORIDE 0.9% 250 ML IV PRN (11:18)
--- NOTE | 2017-02-22 12:16 | Dialysis Note ---
Dialysis Note - Dialysis Note Mr. Urias is seen during hemodialysis. He is tolerating dialysis well. There was sluggish to grossly inadequate flow from the dialysis catheter initially and the catheter was exchanged over a wire for a 16 cm catheter. Flow initially was very good over that. He eventually developed higher venous pressures and decreased arterial inflow that resulted in the need to swap lumens etc. We will try dialysis with this catheter again tomorrow and if inadequate we will consider placement of a femoral dialysis catheter.
--- NOTE | 2017-02-22 12:19 | Neurology Progress Note ---
Neurology - PN : Subjective Interval history: Patient seems to be doing about the same. He is opening his eyes. Not following any commands. Herpes PCR in the CSF is negative. Exam (Progress Note) - Constitutional Vitals: Period Temp Pulse Resp BP Sys/Spear Pulse Ox Last 24 Hr 97.1 F-98.3 F 90-139 10- 98-198/66-114 97-100 Exam: GENERAL: Patient is in no acute distress. NECK: Neck is supple. There is no JVD. No carotid bruits present. No thyroid masses. CVS: First and second heart sounds are normal. There is no S3 present. Regular rate and rhythm. RESPIRATORY: Lungs are clear to auscultation without any rales or rhonchi. ABDOMEN: Soft and non-tender. Bowel sounds are present. There is no hepatosplenomegaly. EXT: There is no palpable edema. Peripheral pulses are present. Skin: No rashes Central Nervous system: General: On vent Speech: On vent Comprehension: Sedated Facial expressions: Normal Cranial Nerves: Pupils are equally reactive to light. Doll's head eye movements are positive. No facial asymmetry is seen. Motor: Bulk and Tone is normal. Strength cannot be assessed Sensory: Cannot be assessed Reflexes: 1+ and symmetrical Cerebellar function: Cannot be assessed Toes: Equivocal Gait: Cannot be assessed Results - Labs CBC & BMP: 02/21/17 02:24 02/22/17 01:52 Assessment and Plan (1) Aseptic meningitis Status: Acute Assessment and plan: Continue current antibiotic coverage for now Stop acyclovir Repeat CAT scan reveals no intraparenchymal abnormalities. Some sinus disease. Consider ENT consultation Current Visit: Yes
--- NOTE | 2017-02-22 13:09 | XRay Report ---
History ventilator management Comparison earlier the same day Chest, one view 02/22/2017 at 12:30 PM Mediastinal contour is unchanged. ET tube is been advanced with the tip now 1 cm above the harper Right jugular sheath and right subclavian central line again seen The lungs are better aerated than on the prior study without consolidation or pneumothorax seen. Impression: 1. Interval advancement of ET tube with the tip now just above the harper 2. Mild improved aeration in the lung bases PROCEDURE INTERPRETED AT [facility] DEPARTMENT OF RADIOLOGY Final Report Signed by: Dr. Jyothi Daly
[2017-02-22] MEDS ORDERED: VANCOMYCIN INJ 750 MG in SODIUM CHLORIDE 0.9% 250 ML IV ONE (16:00)
--- NOTE | 2017-02-22 16:50 | Electroencephalogram ---
HISTORY: A 56-year-old male with a history of cardiopulmonary arrest and hypoxic encephalopathy. INTRODUCTION: A digital EEG was performed using the standard 10/20 system of electrode placement wi th one channel of EKG monitoring. Photic stimulation is performed. DESCRIPTION OF RECORD: The background is somewhat disorganized, consists of 5 to 6 hertz moderate a mplitude bilaterally symmetrical rhythm. Photic stimulation elicits a driving response at slower fl ananda frequencies. There are no focal, sharp-wave, spike, or wave activity seen. Heart rate 78 beats per minute. IMPRESSION: ABNORMAL EEG DUE TO GENERALIZED SLOWING. CLINICAL CORRELATION: This record is supportive of hypj-oz-[id number] encephalopathy, which could be secondary to postictal state, post-hypoxic state, metabolic disorder, diffuse HYDRATOR insult, or increas ed intracranial pressure. No epileptiform/seizure activity seen. Clinical correlation is suggested.
[2017-02-22] MEDS: PROPOFOL 1,000 MG/100 ML BOTTLE IV SCH ×2 (17:42→20:22)
[2017-02-22 20:14] LABS: Hepatitis A Ab IgM Quant 0.13 Index; Hepatitis A Ab IgM Result Negative (Negative); Hepatitis B Core IgM Quant 0.17 Index; Hepatitis B Core IgM Result Negative (Negative); Hepatitis B Surface Ag Result Negative (Negative); Hepatitis C Virus Ab Quant 0.12 Index; Hepatitis C Virus Ab Result Negative (Negative)
[2017-02-22] MEDS: ENOXAPARIN 30 MG/0.3 ML SYRINGE SUBCUT SCH (20:21)
[2017-02-22] MEDS: hydrALAZINE 20 MG/1 ML VIAL IV PRN (20:22)
[2017-02-22] MEDS: SIMVASTATIN 10 MG TABLET PO SCH (20:22)
[2017-02-23] MEDS: INSULIN LISPRO 100 UNIT/ML SUBCUT SCH ×4 (00:28→17:53)
[2017-02-23] MEDS: AMPICILLIN INJ 2,000 MG in SODIUM CHLORIDE 0.9% 100 ML IV SCH ×4 (02:41→20:58)
[2017-02-23 04:08] LABS: Pt O2 Delivery Device Ventilator
[2017-02-23 04:09] LABS: ABG Base Excess -7.8 MMOL/L (-2.5-2.5); ABG HCO3 15.3 MMOL/L (20-26); ABG PCO2 25.8 MM HG (35-48); ABG PH 7.392 (7.35-7.45); ABG PO2 196.5 MM HG (80-95); ABG TCO2 16.1 MMOL/L (23-27)
[2017-02-23 05:06] LABS: Calcium 7.1 MG/DL (8.5-10.1); Magnesium 2.3 MG/DL (1.8-2.4); Osmolality,Calculated 334.3 MOS/KG (273-304); Potassium 3.6 MMOL/L (3.5-5.1)
[2017-02-23] MEDS: cefTRIAXone 2,000 MG in SODIUM CHLORIDE 0.9% 100 ML IV SCH ×2 (06:24→17:12)
[2017-02-23] MEDS: SODIUM CHLORIDE 0.9% 1,000 ML IV SCH ×4 (07:20→16:57)
--- NOTE | 2017-02-23 07:35 | XRay Report ---
XR chest 1V portable Indication: Respiratory failure. Chest one view: Comparison yesterday. Endotracheal tube, NG tube, central line, temporary dialysis catheter are stable. Borderline cardiomegaly has developed, and there is an new haziness to the right lung base concerning for a tiny pleural effusion. No new infiltrates are shown. Lungs are more hypoinflated than previous. Impression: Worsening pulmonary hypoinflation. Borderline cardiomegaly. Trace right pleural effusion suspected. PROCEDURE INTERPRETED AT [facility] DEPARTMENT OF RADIOLOGY Final Report Signed by: Thompson Vegas M.D.
[2017-02-23] MEDS: PANTOPRAZOLE 40 MG TABLET PO SCH (08:29)
[2017-02-23] MEDS: PROPOFOL 1,000 MG/100 ML BOTTLE IV SCH ×3 (08:48→20:53)
--- NOTE | 2017-02-23 08:59 | Pulmonology Progress Note ---
Pulmonary - PN: Subj Interval history: Patient will follow commands and moves everything this morning no history available Exam (Progress Note) - Constitutional Vitals: Period Temp Pulse Resp BP Sys/Spear Pulse Ox Last 24 Hr 97.1 F-98.7 F 86-120 10-34 108-192/55-114 98-100 Exam: Constitutional: General appearance is normal Eyes: Pupils equal round react to light and accommodation conjunctiva and lids are normal Neck: supple without masses Respiratory: Respiratory effort is normal. Lungs are clear to auscultation. Resonant to percussion. Cardiac: Regular rate and rhythm without murmur rub or gallop. PMI at the midclavicular line by palpation. Carotid arteries 2+ palpation no bruits GI: Bowel sounds normoactive, no tenderness or rebound tenderness, no organomegaly Extremities: no clubbing cyanosis or edema Results - Labs CBC & BMP: 02/21/17 02:24 02/23/17 03:30 Assessment and Plan (1) Acute respiratory failure Status: Acute Assessment and plan: Patient followed by pulmonary chest x-ray today shows clear ET tube is down close to the harper will defer to pulmonary for the not to make that change in location Current Visit: Yes (2) Altered mental status Status: Acute Assessment and plan: Seems much more alert to me at this time the nurses say he is more alert Current Visit: Yes (3) Polycythemia Status: Acute Current Visit: Yes (4) Renal failure Status: Acute Assessment and plan: Patient got dialysis yesterday followed by renal Current Visit: Yes
[2017-02-23] MEDS: ASPIRIN EC 81 MG TABLET PO SCH (09:42)
--- NOTE | 2017-02-23 10:08 | Nephrology Progress Note ---
Nephrology - PN: Subj Interval history: Mr. Urias is seen in follow-up of his acute renal failure. He is making urine again but is not clearing waste products effectively so he will require hemodialysis again today. His blood pressure is 170 systolic he has a good bit of edema. Yesterday his dialysis catheter was somewhat temperamental hopefully it will be better today if not we may consider placing the catheter in the femoral vein. He will need volume removal. He is responding to his name and grimaces that is improved from 2 days ago. All cultures of bacterial organisms are negative viral studies are pending. Exam (PN)-Nephrology - Vital Signs Vital signs: Period Temp Pulse Resp BP Sys/Spear Pulse Ox Last 24 Hr 97.1 F-98.7 F 81-117 10-34 108-192/55-114 98-100 - Lab 02/21/17 02:24 02/23/17 03:30 Most recent lab results ABG pH 7.392 (7.35-7.45) 02/23/17 03:40 ABG pCO2 25.8 MM HG (35-48) L 02/23/17 03:40 ABG pO2 196.5 MM HG (80-95) H 02/23/17 03:40 ABG HCO3 15.3 MMOL/L (20-26) L 02/23/17 03:40 ABG O2 Saturation 99.0 % (95-100) 02/23/17 03:40 Calcium 7.1 MG/DL (8.5-10.1) L 02/23/17 03:30 Phosphorus 6.4 MG/DL (2.5-4.9) H 02/22/17 01:52 Magnesium 2.3 MG/DL (1.8-2.4) 02/23/17 03:30 Assessment and Plan (1) Renal failure Status: Acute Assessment and plan: Follow creatinine. Agree with fluid resuscitation in view of hypotension Current Visit: Yes
--- NOTE | 2017-02-23 10:22 | Pulmonology Progress Note ---
Pulmonary - PN: Subj Interval history: This is a 56-year-old male whom I saw in pulmonary consultation on 02/20/2017. My impressions were. 1. Acute meningitis. Etiology undetermined 2. Altered mental status with inability to protect airways. Intubation mechanical ventilation were required. 3. High blood pressure 4. History of CVA 5. Diabetes mellitus. Poor control 6. See past history. 02/21/2017. Today's chest x-ray shows no infiltrates. There is no congestive heart failure. Endotracheal tube is in good position. ABGs on FiO2 of 100% shows a pH of 7.349, PCO2 23.1, PO2 of 524.7 and a bicarb of 12.4. Ventilator changes have been made in rate and an FiO2. Electrolytes are normal. Creatinine is 5.3. BUN is 89. H&H is 17.5/52.9. White count is 27,100 with 81 segs 9 lymphs and 9 monocytes. No positive cultures have been reported. 02/22/2017. Change in orders have been noted. Patient is on stage I of the weaning protocol. Chest x-ray is stable. ABGs are fine. There are no positive cultures. Electrolytes are normal. Creatinine is 6.1 with a BUN of 114. Calcium is low in phosphorus is elevated. Patient is beginning to wake up a little bit. 02/23/2017. There are no positive cultures. Chest x-ray shows no infiltrates and no heart failure. Endotracheal tube is near the harper. ABGs on mechanical ventilation and FiO2 of 50% shows a pH 7.39, PCO2 26, PaO2 of 196 and a bicarb of 15.3. Lab. Sodium is 148 potassium 3.6 creatinine is 4.4 with a BUN of 108. Patient is a little more alert today and can do a little bit more since she is a little bit stronger. Physical exam. Vital signs. See below Psychiatric/neurological. Patient has an altered mental status. Neck. No mass. Lymphatics. No submandibular cervical supraclavicular or epitrochlear adenopathy Chest. Mild loose large airway congestion Heart. No gallop Abdomen. Rare bowel sounds Extremities. Nothing to suggest deep venous thrombophlebitis. The remainder the physical exam is negative. Plan. 1. Agree with your orders. 2. Mechanical ventilation weaning protocol 3. Mechanical ventilation physical therapy protocol 4. Deep venous thrombophlebitis prevention protocol 5. Proton pump inhibitor protocol 6. Daily chest x-ray, ABGs, lab 7. See orders and see my note 02/23/2007 Exam (Progress Note) - Constitutional Vitals: Period Temp Pulse Resp BP Sys/Spear Pulse Ox Last 24 Hr 97.1 F-98.7 F 81-117 10-34 108-192/55-114 98-100 Results - Labs CBC & BMP: 02/21/17 02:24 02/23/17 03:30
[2017-02-23] MEDS: hydrALAZINE 20 MG/1 ML VIAL IV PRN (13:10)
[2017-02-23] MEDS ORDERED: ALBUMIN 25% 25 GM in PREMIX 1 EACH IV ONE (14:56)
[2017-02-23 15:36] LABS: M. Tuberculosis PCR Result Negative (Negative); M. Tuberculosis PCR Source CSF
[2017-02-23] MEDS ORDERED: HEPARIN 10,000 UNIT/10 ML VIAL IV ONE (17:00)
[2017-02-23] MEDS ORDERED: HEPARIN 10,000 UNIT/10 ML VIAL IV SCH (17:00)
--- NOTE | 2017-02-23 17:06 | Dialysis Note ---
Dialysis Note - Dialysis Note Mr. Urias is seen during his hemodialysis. His dialysis catheter is working well yielding 300 cc flow now. We have gotten 1/2 L of fluid off and were shooting for over 3 L. We will continue to get a good bit of fluid off as long as blood pressure tolerated. Catracho currently his blood pressure 120s systolic
[2017-02-23] MEDS: ENOXAPARIN 30 MG/0.3 ML SYRINGE SUBCUT SCH (20:51)
[2017-02-23] MEDS: SIMVASTATIN 10 MG TABLET PO SCH (20:52)
[2017-02-23] MEDS ORDERED: VANCOMYCIN INJ 750 MG in SODIUM CHLORIDE 0.9% 250 ML IV ONE (21:00)
[2017-02-24] MEDS: INSULIN LISPRO 100 UNIT/ML SUBCUT SCH ×4 (01:16→18:32)
[2017-02-24] MEDS: AMPICILLIN INJ 2,000 MG in SODIUM CHLORIDE 0.9% 100 ML IV SCH ×4 (01:16→20:47)
[2017-02-24 04:31] LABS: ABG Base Excess -3.5 MMOL/L (-2.5-2.5); ABG Oxygen Saturation 98.8 % (95-100); ABG PCO2 31.2 MM HG (35-48); ABG PH 7.424 (7.35-7.45); ABG PO2 192.1 MM HG (80-95); ABG TCO2 20.9 MMOL/L (23-27); Allen Test Positive; Pt O2 Delivery Device Ventilator
[2017-02-24 04:45] LABS: Calcium 7.8 MG/DL (8.5-10.1); Magnesium 2.5 MG/DL (1.8-2.4); Potassium 3.3 MMOL/L (3.5-5.1)
[2017-02-24] MEDS: cefTRIAXone 2,000 MG in SODIUM CHLORIDE 0.9% 100 ML IV SCH ×2 (06:42→18:33)
[2017-02-24] MEDS: hydrALAZINE 20 MG/1 ML VIAL IV PRN (06:43)
--- NOTE | 2017-02-24 07:43 | Hospitalist Progress Note ---
Assessment and Plan (1) Acute respiratory failure Status: Acute Assessment and plan: Patient followed by pulmonary chest x-ray today shows clear ET tube is down close to the harper will defer to pulmonary for the not to make that change in location 02/24 tolerating some weaning trials fall by pulmonary, ET tube in good position no infiltrates on chest x-ray wean as tolerated Current Visit: Yes (2) Altered mental status Status: Acute Assessment and plan: Seems much more alert to me at this time the nurses say he is more alert 02/24 still not completely alert we'll follow Current Visit: Yes (3) Polycythemia Status: Acute Current Visit: Yes (4) Renal failure Status: Acute Assessment and plan: Patient got dialysis yesterday followed by renal Current Visit: Yes Hospitalist: Subjective Interval history: Patient still not fully alert. Exam - Constitutional Vitals: Period Temp Pulse Resp BP Sys/Spear Pulse Ox Last 24 Hr 97.7 F-98.4 F 72-99 6-23 92-201/66-88 98-100 Exam: Constitutional: General appearance is normal, ET tube in position Eyes: Pupils equal round react to light and accommodation conjunctiva and lids are normal Neck: supple without masses Respiratory: Respiratory effort is normal. Lungs are clear to auscultation. Resonant to percussion. Cardiac: Regular rate and rhythm without murmur rub or gallop. PMI at the midclavicular line by palpation. Carotid arteries 2+ palpation no bruits GI: Bowel sounds normoactive, no tenderness or rebound tenderness, no organomegaly Extremities: no clubbing cyanosis or edema Results - Labs CBC & BMP: 02/21/17 02:24 02/24/17 03:59
[2017-02-24] MEDS: PROPOFOL 1,000 MG/100 ML BOTTLE IV SCH ×3 (07:46→18:15)
--- NOTE | 2017-02-24 09:28 | XRay Report ---
XR chest 1V portable Indication: Intubated. Chest one view: Since yesterday, endotracheal tube, NG tube, borderline cardiomegaly, elevated right hemidiaphragm are stable. Increased pulmonary vascular congestion now present. Impression: Fluid overload developing. PROCEDURE INTERPRETED AT [facility], [place] DEPARTMENT OF RADIOLOGY Final Report Signed by: Thompson Vegas M.D.
--- NOTE | 2017-02-24 09:33 | Nephrology Progress Note ---
Nephrology - PN: Subj Interval history: Mr. Urias is seen in follow-up of his acute renal failure. He is much better dialyze now following yesterday's run. We were able to remove about 3 kg of fluid and he has less edema. His BUN 66 creatinine 1.9. His chest is clear. Our plan is to continue with dialysis support until kidney function returns. We are encouraged by the return of urine output. He march 1200 cc of urine yesterday Exam (PN)-Nephrology - Vital Signs Vital signs: Period Temp Pulse Resp BP Sys/Spear Pulse Ox Last 24 Hr 97.7 F-98.4 F 72-99 6-23 92-201/66-88 98-100 - Lab 02/21/17 02:24 02/24/17 03:59 Most recent lab results ABG pH 7.424 (7.35-7.45) 02/24/17 03:50 ABG pCO2 31.2 MM HG (35-48) L 02/24/17 03:50 ABG pO2 192.1 MM HG (80-95) H 02/24/17 03:50 ABG HCO3 20.0 MMOL/L (20-26) 02/24/17 03:50 ABG O2 Saturation 98.8 % (95-100) 02/24/17 03:50 Calcium 7.8 MG/DL (8.5-10.1) L 02/24/17 03:59 Phosphorus 6.4 MG/DL (2.5-4.9) H 02/22/17 01:52 Magnesium 2.5 MG/DL (1.8-2.4) H 02/24/17 03:59 Assessment and Plan (1) Renal failure Status: Acute Assessment and plan: Follow creatinine. Agree with fluid resuscitation in view of hypotension Current Visit: Yes
[2017-02-24] MEDS: CARVEDILOL 3.125 MG TABLET PO SCH ×2 (10:42→20:48)
[2017-02-24] MEDS: ASPIRIN EC 81 MG TABLET PO SCH (10:42)
[2017-02-24] MEDS: PANTOPRAZOLE 40 MG TABLET PO SCH (10:43)
--- NOTE | 2017-02-24 12:30 | Pulmonology Progress Note ---
Pulmonary - PN: Subj Interval history: This is a 56-year-old male whom I saw in pulmonary consultation on 02/20/2017. My impressions were. 1. Acute meningitis. Etiology undetermined 2. Altered mental status with inability to protect airways. Intubation mechanical ventilation were required. 3. High blood pressure 4. History of CVA 5. Diabetes mellitus. Poor control 6. See past history. 02/21/2017. Today's chest x-ray shows no infiltrates. There is no congestive heart failure. Endotracheal tube is in good position. ABGs on FiO2 of 100% shows a pH of 7.349, PCO2 23.1, PO2 of 524.7 and a bicarb of 12.4. Ventilator changes have been made in rate and an FiO2. Electrolytes are normal. Creatinine is 5.3. BUN is 89. H&H is 17.5/52.9. White count is 27,100 with 81 segs 9 lymphs and 9 monocytes. No positive cultures have been reported. 02/22/2017. Change in orders have been noted. Patient is on stage I of the weaning protocol. Chest x-ray is stable. ABGs are fine. There are no positive cultures. Electrolytes are normal. Creatinine is 6.1 with a BUN of 114. Calcium is low in phosphorus is elevated. Patient is beginning to wake up a little bit. 02/23/2017. There are no positive cultures. Chest x-ray shows no infiltrates and no heart failure. Endotracheal tube is near the harper. ABGs on mechanical ventilation and FiO2 of 50% shows a pH 7.39, PCO2 26, PaO2 of 196 and a bicarb of 15.3. Lab. Sodium is 148 potassium 3.6 creatinine is 4.4 with a BUN of 108. Patient is a little more alert today and can do a little bit more since she is a little bit stronger. 02/24/2017. Patient's making some slow steady progress. He is on stage IV to weaning protocol.Chest x-ray shows no definite infiltrates and there is no congestive heart failure. Endotracheal tube is in good position. There are no positive cultures. ABGs are stable on FiO2 of 50%. Sodium is 150. Potassium is 3.3. Physical exam. Vital signs. See below Psychiatric/neurological. Patient has an altered mental status. Neck. No mass. Lymphatics. No submandibular cervical supraclavicular or epitrochlear adenopathy Chest. Mild loose large airway congestion Heart. No gallop Abdomen. Rare bowel sounds Extremities. Nothing to suggest deep venous thrombophlebitis. The remainder the physical exam is negative. Plan. 1. Agree with your orders. 2. Mechanical ventilation weaning protocol 3. Mechanical ventilation physical therapy protocol 4. Deep venous thrombophlebitis prevention protocol 5. Proton pump inhibitor protocol 6. Daily chest x-ray, ABGs, lab 7. See orders and see my note 02/24/2007 Exam (Progress Note) - Constitutional Vitals: Period Temp Pulse Resp BP Sys/Spear Pulse Ox Last 24 Hr 98.1 F-98.4 F 80-99 6-22 92-201/66-88 98-100 Results - Labs CBC & BMP: 02/21/17 02:24 02/24/17 03:59
[2017-02-24] MEDS: POTASSIUM CHLORIDE RIDER 20 MEQ in PREMIX 1 EACH IV PRN ×2 (16:03→18:15)
[2017-02-24] MEDS: SODIUM CHLORIDE 0.9% 1,000 ML IV SCH (16:57)
[2017-02-24] MEDS: ENOXAPARIN 30 MG/0.3 ML SYRINGE SUBCUT SCH (20:47)
[2017-02-24] MEDS: DESITIN 4OZ/NYSTATIN 15 GRAM MIXTURE PASTE TOP SCH (20:48)
[2017-02-24] MEDS: SIMVASTATIN 10 MG TABLET PO SCH (20:48)
[2017-02-25] MEDS: INSULIN LISPRO 100 UNIT/ML SUBCUT SCH ×5 (00:22→23:57)
[2017-02-25] MEDS: AMPICILLIN INJ 2,000 MG in SODIUM CHLORIDE 0.9% 100 ML IV SCH ×4 (01:48→21:23)
[2017-02-25] MEDS: PROPOFOL 1,000 MG/100 ML BOTTLE IV SCH ×3 (01:49→18:21)
[2017-02-25 04:02] LABS: Allen Test Positive; Pt O2 Delivery Device Ventilator
[2017-02-25 04:04] LABS: Calcium 7.6 MG/DL (8.5-10.1); Magnesium 2.6 MG/DL (1.8-2.4); Osmolality,Calculated 327.3 MOS/KG (273-304); Phosphorous 3.3 MG/DL (2.5-4.9); Potassium 4.1 MMOL/L (3.5-5.1); Prealbumin 10.3 MG/DL (20-40)
[2017-02-25 04:04] LABS: ABG Base Excess -3.4 MMOL/L (-2.5-2.5); ABG HCO3 19.7 MMOL/L (20-26); ABG PCO2 30.5 MM HG (35-48); ABG PH 7.427 (7.35-7.45); ABG PO2 151.9 MM HG (80-95); ABG TCO2 20.6 MMOL/L (23-27)
[2017-02-25] MEDS: cefTRIAXone 2,000 MG in SODIUM CHLORIDE 0.9% 100 ML IV SCH ×2 (06:08→17:54)
--- NOTE | 2017-02-25 07:48 | XRay Report ---
Referring Physician: Matthew Anderson Exam: XR chest 1V portable Date: February 25, 2017 at 3:36 AM Reason: Ventilation, respiratory failure Comparison: Chest one view portable February 24, 2017 Findings: An endotracheal tube is again in place. Its distal tip projects 0.8 cm above the harper. A right-sided central venous catheter and feeding tube are also again in place. The cardiac silhouette is borderline enlarged. The interstitial markings are prominent bilaterally. This could be secondary to poor expansion of the lungs, mild pulmonary edema or scarring. No pneumothorax is identified. The osseous structures appear stable. Impression: The distal tip of the endotracheal tube now projects 0.8 cm above the harper. The study is otherwise similar to before. PROCEDURE INTERPRETED AT [facility] DEPARTMENT OF RADIOLOGY Final Report Signed by: Dr. Mian Campoverde
[2017-02-25 08:26] LABS: Basophils % 0.3 % (0.0-0.8); Eosinophils # 0.5 10*3/uL (0.0-0.87); Eosinophils % 4.6 % (0.00-10.9); Hematocrit 35.8 VOL% (42.0-52.0); Hemoglobin 11.2 GM/DL (14.0-18.0); Immature Granulocytes % 0.6 %; Immature Granulocytes Absolute 0.07 #; Lymphocytes # 1.8 10*3/uL (1.4-4.0); Lymphocytes % 15.6 % (21.2-54.2); Mean Corpuscular HGB Conc 31.3 GM/DL (32-36); Mean Corpuscular Hemoglobin 29 PG (27-34); Mean Corpuscular Volume 91.8 FL (87-102); Mean Platelet Volume 12.3 FL (9.6-12.0); Monocytes # 2.5 10*3/uL (0.11-0.8); Monocytes % 21.5 % (1.7-12.7); NRBC # 0.03 10*3/uL; Neutrophils # 6.7 10*3/uL (1.4-7.4); Neutrophils % 57.4 % (38.7-73.9); Platelet Count 143 T/CUMM (130-400); Red Cell Distribution Width 15.4 % (9.3-17.3); White Blood Count 11.7 T/CUMM (4-12)
[2017-02-25 08:56] LABS: Eosinophils 5 % (0-10); Hypochromasia 1+; Lymphocytes 14 % (20-55); Nucleated Red Blood Cells 1 (0-5); Platelet Estimate Normal; Segmented Neutrophils 61 % (50-85); Total Cells Counted 100
--- NOTE | 2017-02-25 09:02 | Nephrology Progress Note ---
Nephrology - PN: Subj Interval history: Mr. Urias is seen in follow-up of his acute renal failure. He is improved and has dropped his creatinine on his own from 1.9-1.5. Is also dropped his BUN in the 60s down into the 50s. His serum sodium is 155 and he needs more free water. IV fluids and tube feeding flushes of been changed for that. His blood pressure stable at 130 systolic without vasopressors. He is not waking up. He does have some edema. We will not plan to dialyze him at this point since he is handling his waste products fairly well and I think he will correct his serum sodium on his own. If we do not dialyze him for another day or 2 and he does not require it, then we will remove the dialysis catheter. Exam (PN)-Nephrology - Vital Signs Vital signs: Period Temp Pulse Resp BP Sys/Spear Pulse Ox Last 24 Hr 98.5 F-99.8 F 74-104 3-25 120-182/58-79 97-100 - Lab 02/25/17 08:17 02/25/17 03:15 Most recent lab results ABG pH 7.427 (7.35-7.45) 02/25/17 03:40 ABG pCO2 30.5 MM HG (35-48) L 02/25/17 03:40 ABG pO2 151.9 MM HG (80-95) H 02/25/17 03:40 ABG HCO3 19.7 MMOL/L (20-26) L 02/25/17 03:40 ABG O2 Saturation 99.0 % (95-100) 02/25/17 03:40 Calcium 7.6 MG/DL (8.5-10.1) L 02/25/17 03:15 Phosphorus 3.3 MG/DL (2.5-4.9) 02/25/17 03:15 Magnesium 2.6 MG/DL (1.8-2.4) H 02/25/17 03:15 Assessment and Plan (1) Renal failure Status: Acute Assessment and plan: Follow creatinine. Agree with fluid resuscitation in view of hypotension Current Visit: Yes
--- NOTE | 2017-02-25 09:15 | Neurology Progress Note ---
Neurology - PN : Subjective Interval history: Patient continued to remain same. He is a still unresponsive. When he is off of sedation he was just thrash and not waking up. Renal function is getting better. Exam (Progress Note) - Constitutional Vitals: Period Temp Pulse Resp BP Sys/Spear Pulse Ox Last 24 Hr 98.5 F-99.8 F 74-104 3-25 120-182/58-79 97-100 Exam: GENERAL: Patient is in no acute distress. NECK: Neck is supple. There is no JVD. No carotid bruits present. No thyroid masses. CVS: First and second heart sounds are normal. There is no S3 present. Regular rate and rhythm. RESPIRATORY: Lungs are clear to auscultation without any rales or rhonchi. ABDOMEN: Soft and non-tender. Bowel sounds are present. There is no hepatosplenomegaly. EXT: There is no palpable edema. Peripheral pulses are present. Skin: No rashes Central Nervous system: General: On vent Speech: On vent Comprehension: Sedated Facial expressions: Normal Cranial Nerves: Pupils are equally reactive to light. Doll's head eye movements are positive. No facial asymmetry is seen. Motor: Bulk and Tone is normal. Strength cannot be assessed Sensory: Cannot be assessed Reflexes: 1+ and symmetrical Cerebellar function: Cannot be assessed Toes: Equivocal Gait: Cannot be assessed Results - Labs CBC & BMP: 02/25/17 08:17 02/25/17 03:15 Assessment and Plan (1) Altered mental status Status: Acute Assessment and plan: Etiology is not clear at this point. Repeat CAT scan without If nonconclusive then will go ahead and repeat a spinal tap. Current Visit: Yes
[2017-02-25] MEDS: ASPIRIN EC 81 MG TABLET PO SCH (09:37)
[2017-02-25] MEDS: CARVEDILOL 3.125 MG TABLET PO SCH ×2 (09:37→21:23)
[2017-02-25] MEDS: PANTOPRAZOLE 40 MG TABLET PO SCH (09:37)
[2017-02-25] MEDS: DEXTROSE 5% 1,000 ML IV SCH (09:41)
--- NOTE | 2017-02-25 11:07 | Pulmonology Progress Note ---
Pulmonary - PN: Subj Interval history: This is a 56-year-old male whom I saw in pulmonary consultation on 02/20/2017. My impressions were. 1. Acute meningitis. Etiology undetermined 2. Altered mental status with inability to protect airways. Intubation mechanical ventilation were required. 3. High blood pressure 4. History of CVA 5. Diabetes mellitus. Poor control 6. See past history. 02/21/2017. Today's chest x-ray shows no infiltrates. There is no congestive heart failure. Endotracheal tube is in good position. ABGs on FiO2 of 100% shows a pH of 7.349, PCO2 23.1, PO2 of 524.7 and a bicarb of 12.4. Ventilator changes have been made in rate and an FiO2. Electrolytes are normal. Creatinine is 5.3. BUN is 89. H&H is 17.5/52.9. White count is 27,100 with 81 segs 9 lymphs and 9 monocytes. No positive cultures have been reported. 02/22/2017. Change in orders have been noted. Patient is on stage I of the weaning protocol. Chest x-ray is stable. ABGs are fine. There are no positive cultures. Electrolytes are normal. Creatinine is 6.1 with a BUN of 114. Calcium is low in phosphorus is elevated. Patient is beginning to wake up a little bit. 02/23/2017. There are no positive cultures. Chest x-ray shows no infiltrates and no heart failure. Endotracheal tube is near the harper. ABGs on mechanical ventilation and FiO2 of 50% shows a pH 7.39, PCO2 26, PaO2 of 196 and a bicarb of 15.3. Lab. Sodium is 148 potassium 3.6 creatinine is 4.4 with a BUN of 108. Patient is a little more alert today and can do a little bit more since she is a little bit stronger. 02/24/2017. Patient's making some slow steady progress. He is on stage IV to weaning protocol.Chest x-ray shows no definite infiltrates and there is no congestive heart failure. Endotracheal tube is in good position. There are no positive cultures. ABGs are stable on FiO2 of 50%. Sodium is 150. Potassium is 3.3. 02/25/2017. This patient's chest x-ray is stable. Endotracheal tube is in good position. He is on stage III of the weaning protocol but after evaluating day I want to try to go to a T-tube. His brother who is present this weekend told 1 of the staff members that there is a long history of substance abuse including sniffing glue and the number of other things. Sodium remains elevated at 155 with a potassium of 1.4 He is hardly arousable and I agree with the plan to get a CT of his head. He does not have any positive cultures. His brother was present this weekend and told the staff that he has a long history ABGs on FiO2 of 50% mechanical ventilation showed pH 7.43, PCO2 30.5, PO2 of 152 and a bicarb of 19.7. White count is 11,700 with 57 segs 16 labs and 21 monocytes. Physical exam. Vital signs. See below Psychiatric/neurological. Patient has an altered mental status. Neck. No mass. Lymphatics. No submandibular cervical supraclavicular or epitrochlear adenopathy Chest. Mild loose large airway congestion Heart. No gallop Abdomen. Rare bowel sounds Extremities. Nothing to suggest deep venous thrombophlebitis. The remainder the physical exam is negative. Plan. 1. Agree with your orders. 2. Mechanical ventilation weaning protocol 3. Mechanical ventilation physical therapy protocol 4. Deep venous thrombophlebitis prevention protocol 5. Proton pump inhibitor protocol 6. Daily chest x-ray, ABGs, lab 7. See orders and see my note 02/25/2007 Exam (Progress Note) - Constitutional Vitals: Period Temp Pulse Resp BP Sys/Spear Pulse Ox Last 24 Hr 98.5 F-99.8 F 72-104 3-28 120-167/58-79 99-100 Results - Labs CBC & BMP: 02/25/17 08:17 02/25/17 03:15
[2017-02-25] MEDS: hydrALAZINE 20 MG/1 ML VIAL IV PRN (12:05)
[2017-02-25] MEDS: VANCOMYCIN INJ 1,250 MG in SODIUM CHLORIDE 0.9% 250 ML IV SCH ×2 (12:57→23:58)
[2017-02-25] MEDS: DESITIN 4OZ/NYSTATIN 15 GRAM MIXTURE PASTE TOP SCH ×2 (12:57→21:24)
--- NOTE | 2017-02-25 14:24 | Hospitalist Progress Note ---
Assessment and Plan (1) Acute respiratory failure Status: Acute Assessment and plan: Intubated and Dr. Sauer managing. Unable to tolerate T-tube today, history of substance abuse including huffing glue and other things. Current Visit: Yes (2) Aseptic meningitis Status: Acute Assessment and plan: Cultures have all been negative. HIV negative varicella by PCR negative HSV was canceled but dont know why, retap in am, amp, vanco, rocephin and restart acyclovir Current Visit: Yes (3) Hypernatremia Status: Acute Assessment and plan: cont D5w 50 ml/hr. Current Visit: Yes (4) Polycythemia Status: Acute Assessment and plan: resolved with hydration Current Visit: Yes (5) Diabetes Status: Acute Assessment and plan: Patient's hemoglobin A1c is 8.2, blood sugars still running high Current Visit: Yes (6) H/O: stroke with residual effects Status: Acute Assessment and plan: Continue aspirin, repeat head CT today results Current Visit: Yes Hospitalist: Subjective Interval history: Patient has diffuse anasarca. Discussed case with Dr. Daniela Jaraimllo. Patient still altered and unable to protect airway. Dr. Lira recommending re- tapping him today. Repeat head CT today. Patient huffer of paint. Hx of stroke with residual right leg weakness. Attempted T-tube for 45 minutes. Exam - Constitutional Vitals: Period Temp Pulse Resp BP Sys/Spear Pulse Ox Last 24 Hr 97.2 F-99.1 F 72-104 3-28 122-167/58-79 99-100 Exam: Heart Rate-[RRR] Lungs-[CTAB] GI-[+bs soft, NT] Ext-[diffuse anasarca] Neuro opened eyes to command, not following other command ] psych [unable to evaluate.] General [no acute distress] Results - Labs CBC & BMP: 02/25/17 08:17 02/25/17 03:15 Lab Results: I have reviewed the past 24 hour labs Labs: blood cx times 2 negative, csf negative cx - Diagnostic Findings Procedure: Chest x-ray: report reviewed by me (Prominent interstitial markings)
[2017-02-25 15:06] LABS: West Nile Virus Ab, IgG, CSF Negative (Negative); West Nile Virus Ab, IgM, CSF Negative (Negative)
[2017-02-25] MEDS: ACYCLOVIR INJ 1,000 MG in SODIUM CHLORIDE 0.9% 250 ML IV SCH ×2 (15:53→23:58)
--- NOTE | 2017-02-25 16:26 | CT Report ---
Referring physician: Barbara Bedoya Exam: CT brain without contrast Date: 02/25/2017 Comparison: 02/21/2017 Reason: Alteration of consciousness Technique: Axial images of the head were obtained without the use of contrast. Total DLP was 997.90 mGy*cm. Findings: No hydrocephalus or midline shift is present. There is no evidence of an acute infarction, recent intracranial hemorrhage or abnormal mass effect. Persistent atrophy and diffuse cerebral hypodensities with chronic-appearing infarcts in the bilateral thalami, right basal ganglia, left centrum semiovale, and valeri. The osseous structures appear intact. Nasogastric tube noted. Progressive mucosal thickening/fluid in the visualized paranasal sinuses. Fluid in the mastoid air cells bilaterally. Impression: No acute intracranial abnormality is identified. Persistent atrophy, microvascular disease, and multiple probable chronic ischemic infarcts. Since no remote scans are available for comparison, MRI may be helpful for further evaluation of these findings. Progressive sinusitis and nonspecific fluid in mastoid air cells. The CT exam was performed using one or more of the following dose reduction techniques: Automated exposure control and adjustment of the mA and/or kV according to patient size. PROCEDURE INTERPRETED AT [facility] DEPARTMENT OF RADIOLOGY Final Report Signed by: Dr. Melanie Segovia
[2017-02-25] MEDS: SIMVASTATIN 10 MG TABLET PO SCH (21:23)
[2017-02-26] MEDS: hydrALAZINE 20 MG/1 ML VIAL IV PRN ×3 (00:33→13:35)
[2017-02-26] MEDS: AMPICILLIN INJ 2,000 MG in SODIUM CHLORIDE 0.9% 100 ML IV SCH ×4 (01:34→20:49)
[2017-02-26 03:08] LABS: ABG Base Excess -2.3 MMOL/L (-2.5-2.5); ABG HCO3 22.5 MMOL/L (20-26); ABG Oxygen Saturation 99.4 % (95-100); ABG PCO2 37.8 MM HG (35-48); ABG PH 7.381 (7.35-7.45); ABG TCO2 19.7 MMOL/L (23-27); Allen Test Positive; Pt O2 Delivery Device Ventilator
[2017-02-26 03:22] LABS: Basophils % 0.3 % (0.0-0.8); Eosinophils # 0.6 10*3/uL (0.0-0.87); Eosinophils % 4.3 % (0.00-10.9); Hematocrit 35.5 VOL% (42.0-52.0); Hemoglobin 10.9 GM/DL (14.0-18.0); Immature Granulocytes % 0.5 %; Immature Granulocytes Absolute 0.07 #; Lymphocytes # 1.5 10*3/uL (1.4-4.0); Lymphocytes % 10.7 % (21.2-54.2); Mean Corpuscular HGB Conc 30.7 GM/DL (32-36); Mean Corpuscular Hemoglobin 29 PG (27-34); Mean Corpuscular Volume 94.7 FL (87-102); Monocytes # 2.6 10*3/uL (0.11-0.8); Monocytes % 18.5 % (1.7-12.7); Neutrophils # 9.2 10*3/uL (1.4-7.4); Neutrophils % 65.7 % (38.7-73.9); Platelet Count 162 T/CUMM (130-400); Red Blood Count 3.75 MC/CUMM (3.8-5.5); Red Cell Distribution Width 15.7 % (9.3-17.3)
[2017-02-26 03:54] LABS: Eosinophils 3 % (0-10); Lymphocytes 8 % (20-55); Metamyelocytes 1 %; Segmented Neutrophils 80 % (50-85)
[2017-02-26 03:56] LABS: Platelet Estimate Normal; Total Cells Counted 100
[2017-02-26] MEDS: PROPOFOL 1,000 MG/100 ML BOTTLE IV SCH ×2 (04:01→20:49)
[2017-02-26 04:03] LABS: Calcium 7.7 MG/DL (8.5-10.1); Osmolality,Calculated 332.2 MOS/KG (273-304); Potassium 4.1 MMOL/L (3.5-5.1)
[2017-02-26] MEDS: DEXTROSE 5% 1,000 ML IV SCH ×3 (04:59→16:42)
[2017-02-26] MEDS: cefTRIAXone 2,000 MG in SODIUM CHLORIDE 0.9% 100 ML IV SCH ×2 (05:19→19:14)
[2017-02-26] MEDS: INSULIN LISPRO 100 UNIT/ML SUBCUT SCH ×3 (05:20→19:14)
--- NOTE | 2017-02-26 07:18 | XRay Report ---
Referring Physician: Matthew Anderson Exam: XR chest 1V portable Date: February 26, 2017 at 3:41 AM Reason: Ventilation, respiratory failure Comparison: Chest one view portable February 25, 2017 Findings: An endotracheal tube, feeding tube, right subclavian catheter and right IJ catheter are again in place. The distal tip of the endotracheal tube projects 1.8 cm above the harper today. The cardiac silhouette is again borderline enlarged. The patient is slightly rotated to the right, and there are minimal bibasilar opacities. These opacities likely represent atelectasis. No pneumothorax or definite pleural fluid is identified. No acute osseous process is seen. Impression: The patient is slightly rotated to the right today. There are also minimal bibasilar opacities which are favored to represent atelectasis. PROCEDURE INTERPRETED AT [facility] DEPARTMENT OF RADIOLOGY Final Report Signed by: Dr. Mian Campoverde
--- NOTE | 2017-02-26 08:27 | Nephrology Progress Note ---
Nephrology - PN: Subj Interval history: Mr. Urias is seen in follow-up of his acute renal failure. His creatinine stable at 1.6 is sodium however is 156 after we increased his free water yesterday. He needs yet more free water. He does have some edema of the arms. He is off sedation now and is moving but is not purposeful. We will continue to follow his progress and we will increase his D5W to 100 cc/h. He has his dialysis catheter in place but does not need dialysis at this point. We will remove that in a day or so if he continues to progress. Exam (PN)-Nephrology - Vital Signs Vital signs: Period Temp Pulse Resp BP Sys/Spear Pulse Ox Last 24 Hr 97.8 F-100.5 F 72-112 10-30 122-180/52-84 95-100 - Lab 02/26/17 03:15 02/26/17 03:15 Most recent lab results ABG pH 7.381 (7.35-7.45) 02/26/17 02:30 ABG pCO2 37.8 MM HG (35-48) 02/26/17 02:30 ABG pO2 167.0 MM HG (80-95) H 02/26/17 02:30 ABG HCO3 22.5 MMOL/L (20-26) 02/26/17 02:30 ABG O2 Saturation 99.4 % (95-100) 02/26/17 02:30 Calcium 7.7 MG/DL (8.5-10.1) L 02/26/17 03:15 Phosphorus 3.3 MG/DL (2.5-4.9) 02/25/17 03:15 Magnesium 2.6 MG/DL (1.8-2.4) H 02/25/17 03:15 Assessment and Plan (1) Renal failure Status: Acute Assessment and plan: Follow creatinine. Agree with fluid resuscitation in view of hypotension Current Visit: Yes
[2017-02-26] MEDS: ASPIRIN EC 81 MG TABLET PO SCH (08:37)
[2017-02-26] MEDS: CARVEDILOL 3.125 MG TABLET PO SCH (08:37)
[2017-02-26] MEDS: ACYCLOVIR INJ 1,000 MG in SODIUM CHLORIDE 0.9% 250 ML IV SCH ×2 (08:37→15:26)
[2017-02-26] MEDS: PANTOPRAZOLE 40 MG TABLET PO SCH (08:38)
[2017-02-26] MEDS: DESITIN 4OZ/NYSTATIN 15 GRAM MIXTURE PASTE TOP SCH ×2 (08:38→20:50)
--- NOTE | 2017-02-26 11:59 | Pulmonology Progress Note ---
Pulmonary - PN: Subj Interval history: This is a 56-year-old male whom I saw in pulmonary consultation on 02/20/2017. My impressions were. 1. Acute meningitis. Etiology undetermined 2. Altered mental status with inability to protect airways. Intubation mechanical ventilation were required. 3. High blood pressure 4. History of CVA 5. Diabetes mellitus. Poor control 6. See past history. 02/21/2017. Today's chest x-ray shows no infiltrates. There is no congestive heart failure. Endotracheal tube is in good position. ABGs on FiO2 of 100% shows a pH of 7.349, PCO2 23.1, PO2 of 524.7 and a bicarb of 12.4. Ventilator changes have been made in rate and an FiO2. Electrolytes are normal. Creatinine is 5.3. BUN is 89. H&H is 17.5/52.9. White count is 27,100 with 81 segs 9 lymphs and 9 monocytes. No positive cultures have been reported. 02/22/2017. Change in orders have been noted. Patient is on stage I of the weaning protocol. Chest x-ray is stable. ABGs are fine. There are no positive cultures. Electrolytes are normal. Creatinine is 6.1 with a BUN of 114. Calcium is low in phosphorus is elevated. Patient is beginning to wake up a little bit. 02/23/2017. There are no positive cultures. Chest x-ray shows no infiltrates and no heart failure. Endotracheal tube is near the harper. ABGs on mechanical ventilation and FiO2 of 50% shows a pH 7.39, PCO2 26, PaO2 of 196 and a bicarb of 15.3. Lab. Sodium is 148 potassium 3.6 creatinine is 4.4 with a BUN of 108. Patient is a little more alert today and can do a little bit more since she is a little bit stronger. 02/24/2017. Patient's making some slow steady progress. He is on stage IV to weaning protocol.Chest x-ray shows no definite infiltrates and there is no congestive heart failure. Endotracheal tube is in good position. There are no positive cultures. ABGs are stable on FiO2 of 50%. Sodium is 150. Potassium is 3.3. 02/25/2017. This patient's chest x-ray is stable. Endotracheal tube is in good position. He is on stage III of the weaning protocol but after evaluating day I want to try to go to a T-tube. His brother who is present this weekend told 1 of the staff members that there is a long history of substance abuse including sniffing glue and the number of other things. Sodium remains elevated at 155 with a potassium of 1.4 He is hardly arousable and I agree with the plan to get a CT of his head. He does not have any positive cultures. His brother was present this weekend and told the staff that he has a long history ABGs on FiO2 of 50% mechanical ventilation showed pH 7.43, PCO2 30.5, PO2 of 152 and a bicarb of 19.7. White count is 11,700 with 57 segs 16 labs and 21 monocytes. 08/28/2017. This patient is making improvement with the weaning protocol. His chest x-ray shows no infiltrates and no pulmonary edema. Endotracheal tube is in good position. ABGs on mechanical ventilation and FiO2 50% shows a pH 7.38, PCO2 of 38, PO2 of 167 and a bicarb of 22.5. Sodium is 156, potassium 4.1. Creatinine 1.60 with a BUN of 59. White count is 14,000 with 66 segs 10.7 lymphocytes and 18.5 monocytes. H&H is 10.9/35.5. There are no positive cultures. The patient's for lumbar puncture today. Patient makes some movements in response to certain stimuli but he has not woken up. I have appreciate Dr. Mateusz Best's renal consultation and help. Physical exam. Vital signs. See below Psychiatric/neurological. Patient has an altered mental status. Neck. No mass. Lymphatics. No submandibular cervical supraclavicular or epitrochlear adenopathy Chest. Mild loose large airway congestion Heart. No gallop Abdomen. Rare bowel sounds Extremities. Nothing to suggest deep venous thrombophlebitis. The remainder the physical exam is negative. Plan. 1. Agree with your orders. 2. Mechanical ventilation weaning protocol 3. Mechanical ventilation physical therapy protocol 4. Deep venous thrombophlebitis prevention protocol 5. Proton pump inhibitor protocol 6. Daily chest x-ray, ABGs, lab 7. See orders and see my note 02/26/2007 Exam (Progress Note) - Constitutional Vitals: Period Temp Pulse Resp BP Sys/Spear Pulse Ox Last 24 Hr 97.8 F-100.5 F 88-112 10-30 124-180/52-84 95-100 Results - Labs CBC & BMP: 02/26/17 03:15 02/26/17 03:15
[2017-02-26] MEDS: VANCOMYCIN INJ 1,250 MG in SODIUM CHLORIDE 0.9% 250 ML IV SCH (12:19)
--- NOTE | 2017-02-26 12:46 | Hospitalist Progress Note ---
Assessment and Plan (1) Acute respiratory failure Status: Acute Assessment and plan: Intubated, Dr. Sauer managing. tolerating weaning trials today Current Visit: Yes (2) Aseptic meningitis Status: Acute Assessment and plan: repeat csf tap today cont acyclovir, rocephin, ampicillin and vanco Current Visit: Yes (3) Hypernatremia Status: Acute Assessment and plan: cont D5w 50 ml/hr. Current Visit: Yes (4) Polycythemia Status: Acute Assessment and plan: resolved Current Visit: Yes (5) Diabetes Status: Acute Assessment and plan: Patient's hemoglobin A1c is 8.2, blood sugars still high, low dose lantus Current Visit: Yes (6) H/O: stroke with residual effects Status: Acute Assessment and plan: Continue aspirin, nothing acute Current Visit: Yes Hospitalist: Subjective Interval history: Patient has [facility] which takes forever to get approval for [facility]. We have been unable to wean him from the vent. He is not improved. We will re-tap him today as the CT of his head does not show anything new. We will continue to treat him for aseptic meningitis. Awaiting repeat tap. Baseline mental function he was mildly mentally delayed according to his family and had to be cared for but was still living I believe on his own. We are working with [facility] to get him over there. history of substance abuse including huffing glue and other things. Exam - Constitutional Vitals: Period Temp Pulse Resp BP Sys/Spear Pulse Ox Last 24 Hr 97.8 F-100.5 F 88-112 10-30 124-169/52-79 95-100 Exam: Heart Rate-[tachycardic] Lungs-[CTAB] GI-[+bs soft, NT] Ext-[diffuse anasarca] Neuro opened eyes to command, but not following other command ] psych [very agitated and combative today] General [no acute distress] Results - Labs CBC & BMP: 02/26/17 03:15 02/26/17 03:15 Lab Results: I have reviewed the past 24 hour labs Labs: Cultures 2 were negative, CSF tap from 02/19 is negative - Diagnostic Findings Procedure: Chest x-ray: report reviewed by me (bilateral atelectasis, ), CT: report reviewed by me (head chronic ischemic infarcts )
[2017-02-26] MEDS: METOPROLOL TARTRATE 50 MG TABLET PO SCH ×2 (14:45→20:49)
[2017-02-26] MEDS: INSULIN GLARGINE 100 UNIT/ML SUBCUT SCH (14:45)
--- NOTE | 2017-02-26 15:43 | Neurology Progress Note ---
Neurology - PN : Subjective Interval history: Patient seems to be doing about the same. Still on vent and not responding much. Not waking up. Repeat CAT scan is nonconclusive. LP is pending Exam (Progress Note) - Constitutional Vitals: Period Temp Pulse Resp BP Sys/Spear Pulse Ox Last 24 Hr 98 F-100.5 F 88-112 10-26 124-184/52-85 95-100 Exam: GENERAL: Patient is in no acute distress. NECK: Neck is supple. There is no JVD. No carotid bruits present. No thyroid masses. CVS: First and second heart sounds are normal. There is no S3 present. Regular rate and rhythm. RESPIRATORY: Lungs are clear to auscultation without any rales or rhonchi. ABDOMEN: Soft and non-tender. Bowel sounds are present. There is no hepatosplenomegaly. EXT: There is no palpable edema. Peripheral pulses are present. Skin: No rashes Central Nervous system: General: On vent Speech: On vent Comprehension: Sedated Facial expressions: Normal Cranial Nerves: Pupils are equally reactive to light. Doll's head eye movements are positive. No facial asymmetry is seen. Motor: Bulk and Tone is normal. Strength cannot be assessed Sensory: Cannot be assessed Reflexes: 1+ and symmetrical Cerebellar function: Cannot be assessed Toes: Equivocal Gait: Cannot be assessed Results - Labs CBC & BMP: 02/26/17 03:15 02/26/17 03:15 Assessment and Plan (1) Altered mental status Status: Acute Assessment and plan: Etiology is not clear at this point. For LP today Continue current antibiotic Current Visit: Yes
[2017-02-26] MEDS: SIMVASTATIN 10 MG TABLET PO SCH (20:49)
[2017-02-27] MEDS: VANCOMYCIN INJ 1,250 MG in SODIUM CHLORIDE 0.9% 250 ML IV SCH (00:02)
[2017-02-27] MEDS: INSULIN LISPRO 100 UNIT/ML SUBCUT SCH ×3 (00:02→13:00)
[2017-02-27] MEDS: ACYCLOVIR INJ 1,000 MG in SODIUM CHLORIDE 0.9% 250 ML IV SCH ×2 (00:02→09:11)
[2017-02-27] MEDS: DEXTROSE 5% 1,000 ML IV SCH ×3 (00:03→12:51)
[2017-02-27] MEDS: AMPICILLIN INJ 2,000 MG in SODIUM CHLORIDE 0.9% 100 ML IV SCH ×3 (01:52→14:06)
[2017-02-27] MEDS: hydrALAZINE 20 MG/1 ML VIAL IV PRN (01:52)
[2017-02-27 03:24] LABS: Allen Test Positive; Pt O2 Delivery Device Ventilator
[2017-02-27 03:25] LABS: ABG Base Excess -3.3 MMOL/L (-2.5-2.5); ABG HCO3 21.7 MMOL/L (20-26); ABG Oxygen Saturation 99.5 % (95-100); ABG PCO2 37.2 MM HG (35-48); ABG TCO2 19.1 MMOL/L (23-27)
[2017-02-27] MEDS: PROPOFOL 1,000 MG/100 ML BOTTLE IV SCH ×2 (04:23→12:54)
[2017-02-27 04:51] LABS: Basophils % 0.2 % (0.0-0.8); Eosinophils # 0.9 10*3/uL (0.0-0.87); Eosinophils % 5.2 % (0.00-10.9); Hematocrit 36.4 VOL% (42.0-52.0); Hemoglobin 11.4 GM/DL (14.0-18.0); Immature Granulocytes % 0.6 %; Lymphocytes # 1.4 10*3/uL (1.4-4.0); Lymphocytes % 7.6 % (21.2-54.2); Mean Corpuscular HGB Conc 31.3 GM/DL (32-36); Mean Corpuscular Hemoglobin 30 PG (27-34); Mean Corpuscular Volume 94.3 FL (87-102); Mean Platelet Volume 12.2 FL (9.6-12.0); Monocytes # 2.1 10*3/uL (0.11-0.8); Monocytes % 11.8 % (1.7-12.7); NRBC # 0.02 10*3/uL; Neutrophils # 13.4 10*3/uL (1.4-7.4); Neutrophils % 74.6 % (38.7-73.9); Platelet Count 207 T/CUMM (130-400); Red Blood Count 3.86 MC/CUMM (3.8-5.5); Red Cell Distribution Width 15.8 % (9.3-17.3)
[2017-02-27 05:26] LABS: Calcium 7.5 MG/DL (8.5-10.1); Osmolality,Calculated 325.9 MOS/KG (273-304); Potassium 4.3 MMOL/L (3.5-5.1)
[2017-02-27] MEDS: cefTRIAXone 2,000 MG in SODIUM CHLORIDE 0.9% 100 ML IV SCH (05:43)
--- NOTE | 2017-02-27 06:08 | XRay Report ---
Referring Physician: Matthew Anderson Exam: XR chest 1V portable Date: February 27, 2017 at 2:37 AM Reason: Ventilation Comparison: Chest one view portable February 26, 2017 Findings: A right-sided subclavian catheter, right IJ catheter, feeding tube and endotracheal tube are again in place. The cardiac silhouette is upper normal in size. There are mild bibasilar opacities, mainly on the right. This likely represents atelectasis, but there could also be aspiration or pneumonia at the right lung base. No pneumothorax is identified, but there is likely mild bilateral pleural fluid. The osseous structures appear stable. Impression: Mild bibasilar opacities are present and have slightly increased on the right. This likely represents atelectasis, but there could also be aspiration or pneumonia at the right lung base. Mild bilateral pleural fluid is also now suspected. PROCEDURE INTERPRETED AT [facility] DEPARTMENT OF RADIOLOGY Final Report Signed by: Dr. Mian Campoverde
--- NOTE | 2017-02-27 08:34 | Nephrology Progress Note ---
Nephrology - PN: Subj Interval history: Mr. Urias is seen in follow-up of his acute renal failure in the midst of his [employer] infectious illness. Because of his renal impairment was hypotension and he recovered fairly quickly. His creatinine has been holding reasonably at and is today 1.7. His right neck dialysis catheter was removed by me and pressure was held. He is still not fully awake but does respond to his name. We discussed his case with Dr. Thomas who is pursuing a follow-up lumbar puncture today. Hopefully he will be able to come off of vancomycin before too long. He is receiving D5W at 100 cc an hour to help with his hyponatremia. His serum sodium today is 151 which is much better. Exam (PN)-Nephrology - Vital Signs Vital signs: Period Temp Pulse Resp BP Sys/Spear Pulse Ox Last 24 Hr 97.2 F-98.7 F 75-105 12-26 135-184/60-85 98-100 - Lab 02/27/17 04:30 02/27/17 04:30 Most recent lab results ABG pH 7.370 (7.35-7.45) 02/27/17 03:10 ABG pCO2 37.2 MM HG (35-48) 02/27/17 03:10 ABG pO2 170.0 MM HG (80-95) H 02/27/17 03:10 ABG HCO3 21.7 MMOL/L (20-26) 02/27/17 03:10 ABG O2 Saturation 99.5 % (95-100) 02/27/17 03:10 Calcium 7.5 MG/DL (8.5-10.1) L 02/27/17 04:30 Phosphorus 3.3 MG/DL (2.5-4.9) 02/25/17 03:15 Magnesium 2.6 MG/DL (1.8-2.4) H 02/25/17 03:15 Assessment and Plan (1) Renal failure Status: Acute Assessment and plan: Follow creatinine. Agree with fluid resuscitation in view of hypotension Current Visit: Yes
[2017-02-27 09:05] LABS: Basophils % 0.2 % (0.0-0.8); Eosinophils % 5.3 % (0.00-10.9); Hematocrit 35.6 VOL% (42.0-52.0); Hemoglobin 11.1 GM/DL (14.0-18.0); Immature Granulocytes % 0.4 %; Immature Granulocytes Absolute 0.08 #; Lymphocytes # 1.5 10*3/uL (1.4-4.0); Mean Corpuscular HGB Conc 31.2 GM/DL (32-36); Mean Corpuscular Hemoglobin 29 PG (27-34); Mean Corpuscular Volume 92.7 FL (87-102); Mean Platelet Volume 12.1 FL (9.6-12.0); Monocytes # 2.2 10*3/uL (0.11-0.8); Monocytes % 12.3 % (1.7-12.7); NRBC # 0.02 10*3/uL; Neutrophils # 13.4 10*3/uL (1.4-7.4); Neutrophils % 73.8 % (38.7-73.9); Platelet Count 212 T/CUMM (130-400); Red Blood Count 3.84 MC/CUMM (3.8-5.5); Red Cell Distribution Width 15.7 % (9.3-17.3); White Blood Count 18.2 T/CUMM (4-12)
[2017-02-27] MEDS: PANTOPRAZOLE 40 MG TABLET PO SCH (09:19)
[2017-02-27] MEDS: ASPIRIN EC 81 MG TABLET PO SCH (09:19)
[2017-02-27] MEDS: DESITIN 4OZ/NYSTATIN 15 GRAM MIXTURE PASTE TOP SCH (09:20)
[2017-02-27] MEDS: INSULIN GLARGINE 100 UNIT/ML SUBCUT SCH (09:20)
[2017-02-27] MEDS: METOPROLOL TARTRATE 50 MG TABLET PO SCH (09:23)
[2017-02-27 09:35] LABS: Alanine Aminotransferase 61 U/L (16-61); Albumin 1.9 G/DL (3.4-5.0); Alkaline Phosphatase 81 U/L (45-117); Aspartate Amino Transferase 46 U/L (0-37); Bilirubin,Total < 0.39 MG/DL (0.2-1.0); Blood Urea Nitrogen 57 MG/DL (7-18); Calcium 7.7 MG/DL (8.5-10.1); Glucose 298 MG/DL (74-106); Osmolality,Calculated 325.9 MOS/KG (273-304); Potassium 4.1 MMOL/L (3.5-5.1); Sodium 151 MMOL/L (136-145); Total Protein 5.3 G/DL (6.4-8.3)
--- NOTE | 2017-02-27 11:13 | Pulmonology Progress Note ---
Pulmonary - PN: Subj Interval history: This is a 56-year-old male whom I saw in pulmonary consultation on 02/20/2017. My impressions were. 1. Acute meningitis. Etiology undetermined 2. Altered mental status with inability to protect airways. Intubation mechanical ventilation were required. 3. High blood pressure 4. History of CVA 5. Diabetes mellitus. Poor control 6. See past history. 02/21/2017. Today's chest x-ray shows no infiltrates. There is no congestive heart failure. Endotracheal tube is in good position. ABGs on FiO2 of 100% shows a pH of 7.349, PCO2 23.1, PO2 of 524.7 and a bicarb of 12.4. Ventilator changes have been made in rate and an FiO2. Electrolytes are normal. Creatinine is 5.3. BUN is 89. H&H is 17.5/52.9. White count is 27,100 with 81 segs 9 lymphs and 9 monocytes. No positive cultures have been reported. 02/22/2017. Change in orders have been noted. Patient is on stage I of the weaning protocol. Chest x-ray is stable. ABGs are fine. There are no positive cultures. Electrolytes are normal. Creatinine is 6.1 with a BUN of 114. Calcium is low in phosphorus is elevated. Patient is beginning to wake up a little bit. 02/23/2017. There are no positive cultures. Chest x-ray shows no infiltrates and no heart failure. Endotracheal tube is near the harper. ABGs on mechanical ventilation and FiO2 of 50% shows a pH 7.39, PCO2 26, PaO2 of 196 and a bicarb of 15.3. Lab. Sodium is 148 potassium 3.6 creatinine is 4.4 with a BUN of 108. Patient is a little more alert today and can do a little bit more since she is a little bit stronger. 02/24/2017. Patient's making some slow steady progress. He is on stage IV to weaning protocol.Chest x-ray shows no definite infiltrates and there is no congestive heart failure. Endotracheal tube is in good position. There are no positive cultures. ABGs are stable on FiO2 of 50%. Sodium is 150. Potassium is 3.3. 02/25/2017. This patient's chest x-ray is stable. Endotracheal tube is in good position. He is on stage III of the weaning protocol but after evaluating day I want to try to go to a T-tube. His brother who is present this weekend told 1 of the staff members that there is a long history of substance abuse including sniffing glue and the number of other things. Sodium remains elevated at 155 with a potassium of 1.4 He is hardly arousable and I agree with the plan to get a CT of his head. He does not have any positive cultures. His brother was present this weekend and told the staff that he has a long history ABGs on FiO2 of 50% mechanical ventilation showed pH 7.43, PCO2 30.5, PO2 of 152 and a bicarb of 19.7. White count is 11,700 with 57 segs 16 labs and 21 monocytes. 08/28/2017. This patient is making improvement with the weaning protocol. His chest x-ray shows no infiltrates and no pulmonary edema. Endotracheal tube is in good position. ABGs on mechanical ventilation and FiO2 50% shows a pH 7.38, PCO2 of 38, PO2 of 167 and a bicarb of 22.5. Sodium is 156, potassium 4.1. Creatinine 1.60 with a BUN of 59. White count is 14,000 with 66 segs 10.7 lymphocytes and 18.5 monocytes. H&H is 10.9/35.5. There are no positive cultures. The patient's for lumbar puncture today. Patient makes some movements in response to certain stimuli but he has not woken up. I have appreciate Dr. Mateusz Best's renal consultation and help. 08/29/2017. Patient's for lumbar puncture today. His chest x-ray showed some bibasilar atelectasis. He is now on stage V the weaning protocol. There are no positive cultures. ABGs are stable. Sodium is elevated 151 with a potassium of 4.1. Creatinine is 1.8 with a BUN of 57. White blood cell count is 18,200 with 74% segs H&H 11.1/35.6. Liver function tests are close to normal with low protein and low albumin. Patient is still extremely difficult to arouse. He continues to have an altered state of consciousness. Physical exam. Vital signs. See below Psychiatric/neurological. Patient has an altered mental status. Neck. No mass. Lymphatics. No submandibular cervical supraclavicular or epitrochlear adenopathy Chest. Mild loose large airway congestion Heart. No gallop Abdomen. Rare bowel sounds Extremities. Nothing to suggest deep venous thrombophlebitis. The remainder the physical exam is negative. Plan. 1. Agree with your orders. 2. Mechanical ventilation weaning protocol 3. Mechanical ventilation physical therapy protocol 4. Deep venous thrombophlebitis prevention protocol 5. Proton pump inhibitor protocol 6. Daily chest x-ray, ABGs, lab 7. See orders and see my note 02/26/2007 Exam (Progress Note) - Constitutional Vitals: Period Temp Pulse Resp BP Sys/Spear Pulse Ox Last 24 Hr 97.2 F-98 F 75-103 12-26 135-184/60-85 96-100 Results - Labs CBC & BMP: 02/27/17 08:47 02/27/17 08:47
--- NOTE | 2017-02-27 15:06 | Hospitalist Progress Note ---
Assessment and Plan (1) Acute respiratory failure Status: Acute Assessment and plan: Intubated, Dr. Sauer managing. CXR looks worse today. Current Visit: Yes (2) Aseptic meningitis Status: Acute Assessment and plan: repeat csf tap today cont acyclovir, rocephin, ampicillin and vanco. Will stop vanco if negative Current Visit: Yes (3) Hypernatremia Status: Acute Assessment and plan: cont D5w 100 ml/hr. Current Visit: Yes (4) Diabetes Status: Acute Assessment and plan: Patient's hemoglobin A1c is 8.2, increase lantus Current Visit: Yes (5) H/O: stroke with residual effects Status: Acute Assessment and plan: Continue aspirin, nothing acute Current Visit: Yes Hospitalist: Subjective Interval history: Dr. Best and I discussed patient. His renal function is deteriorating and he would like to stop the vancomycin. Were concerned as he is getting a repeat spinal tap today. If it is negative stopping the vancomycin would be reasonable. Patient doing stage III on his weaning trials but is not alert enough to be extubated. Exam - Constitutional Vitals: Period Temp Pulse Resp BP Sys/Spear Pulse Ox Last 24 Hr 97.2 F-98 F 75-95 12-27 135-170/60-79 96-100 Exam: Heart RRR] Lungs-[rhonchi] GI-[+bs soft, NT] Ext-[diffuse anasarca] Neuro combative and agitated psych [very agitated and combative today] General [mild acute distress] Results - Labs CBC & BMP: 02/27/17 08:47 02/27/17 08:47 Lab Results: I have reviewed the past 24 hour labs - Diagnostic Findings Procedure: Chest x-ray: report reviewed by me (bilateral infiltrates )
[2017-02-27] MEDS ORDERED: INSULIN GLARGINE 100 UNIT/ML SUBCUT SCH (15:08)
[2017-02-27 15:29] LABS: Glucose,CSF 147 MG/DL (40-70)
[2017-02-27 15:43] LABS: Appearance,CSF Clear
[2017-02-27 15:44] LABS: Lymphocytes,CSF 92 %; Monocytes,CSF 8 %; Red Blood Cell,CSF < 1 C/CUMM; White Blood Cell,CSF 38 C/CUMM
--- NOTE | 2017-02-27 16:16 | Discharge Summary ---
Hospital Course - Hospital Course Hospital Course: Mr. 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 Patient was transferred here from [facility] for admission and treatment. An immediate lumbar puncture was done which showed CSF WBC is a 43, CSF lymphocytes 78, CSF glucose 143, CSF protein 84. Dr. Lira was consulted and patient was placed on vancomycin, Rocephin, ampicillin, acyclovir. CSF culture was negative no growth. CSF for CMV was negative, CSF her varicella-zoster negative, Mycobacterium complex negative, West Nile negative, HSV 1 and 2 negative. On February 20, 2017 patient's condition deteriorated. Patient's alertness decreased his creatinine increased in his blood pressure dropped. Patient was immediately intubated for respiratory support. Dr. Sauer from pulmonary was consulted and managed the vent. Dr. Lira felt patient had aseptic meningitis but was concerned that Patient was not improving. Patient's creatinine on admission was 3.4 and deteriorated down to 6.10. Dialysis catheter was placed and patient was dialyzed once on February 22, [address] Bets from nephrology. Patient's renal function quickly recovered and is currently down to 1.8. The dialysis catheter was removed today. Patient's head CT on admission was unremarkable. This was repeated yesterday and equally unremarkable. Repeat spinal tap was ordered today and his white count in the CSF remain at 38 with mainly lymphocytes. Patient remains combative and agitated. He is unable to follow commands. An EEG was performed on February 22, 2017 which showed abnormal generalized slowing but no seizure activity was noted. We have been unable to wean patient off the vent and his creatinine is starting to rise again. Dr. Best wanted to discontinue the vancomycin but I was concerned about doing so without a repeat spinal tap. Patient's blood pressure is been on the higher end and he is currently on metoprolol. He does have diabetes and his blood sugars increased quite significantly today I increased his Lantus. Dr. Lira from Neurology was concerned why patient was not improving. I have spoken with Dr. Maxwell at [facility] who has accepted him for transfer to [facility]. - Time spent with patient Time with patient DS: Greater than 30 minutes (55 min) Diagnosis - Discharge Diagnosis (1) Acute respiratory failure Status: Acute (2) Aseptic meningitis Status: Acute (3) Hypernatremia Status: Acute (4) Diabetes Status: Acute (5) H/O: stroke with residual effects Status: Acute Discharge Plan - Discharge Data Disposition: Disch/Xfer-[facility] Condition at Discharge: Stable Discharge Diet: other (npo ) - Discharge Medications New Acyclovir Inj [Zovirax Inj] 1,000 mg IV Q8H vial Albuterol/Ipratropium Neb [Duoneb] 3 ml RESP TX RT Q4H PRN #0 PRN Reason: short of breath Dextrose 50% [D50] 25 gm IV PRN PRN #0 vial PRN Reason: Hypoglycemia with IV access Glucagon 1 mg IM PRN PRN #0 vial PRN Reason: Hypoglycemia w/o IV access Insulin Glargine [Lantus] 20 unit SUBCUT DAILY unit Lactulose Liquid [Chronulac] 20 gm PO Q4H PRN #0 PRN Reason: Constipation Metoprolol Tartrate Tab [Lopressor Tab] 50 mg PO BID tablet Ondansetron Inj [Zofran Inj] 4 mg IV Q4H PRN #0 vial PRN Reason: Nausea Pantoprazole Tab [Protonix Tab] 40 mg PO DAILY tablet Vancomycin Inj 1,250 mg IV Q24H vial cefTRIAXone [Rocephin] 2,000 mg IV Q12H vial hydrALAZINE INJ [Apresoline Inj] 10 mg IV Q6H PRN #0 vial PRN Reason: SBP>160 OR DBP>90 Acetaminophen Tab [Tylenol Tab] 325 mg PO Q4H PRN #0 tablet PRN Reason: fever, headache/body aches Ampicillin Inj 2,000 mg IV Q6H vial Insulin Lispro [HumaLOG] See Protocol SUBCUT Q6HR unit Potassium Chloride Yunior 20 meq IV .PER PROTOCOL PRN #0 PRN Reason: Per Protocol Continue Aspirin [Ecotrin] 81 mg PO DAILY Simvastatin [Zocor] 10 mg PO BEDTIME Discontinued Tramadol HCl [Tramadol Tab] 50 mg PO Q6H PRN PRN Reason: Pain Diclofenac 1% Gel [Voltaren 1% Gel] 1 applic TOP QID Glyburide/Metformin HCl [Glyburide-Metformin 5-500 mg] 1 each PO DAILY Fosinopril Sodium 20 mg PO DAILY Carvedilol [Coreg] 3.125 mg PO BID - Follow Up or Referral - Forms/Instructions Additional Discharge Instructions: Vent setting: AC 10, peep 5, TV 600, FIO2 50% . Feeding: two gisselle HN with FOS at 35 ml/hr with free water 50 ml every 2 hours Exam - Constitutional Vitals: Period Temp Pulse Resp BP Sys/Spear Pulse Ox Last 24 Hr 97.2 F-98.0 F 75-95 12-27 135-170/60-86 96-100 General appearance: normal weight, mild distress - Respiratory Respiratory exam: Present: rhonchi. Absent: wheezes - Cardiovascular Cardiovascular exam: Present: regular rate and rhythm - GI/Abdominal GI/Abdominal exam: Present: normal bowel sounds, soft. Absent: tenderness - Extremities Exam Extremities exam: Present: edema - Neurological Exam Neurological exam: Present: altered Discharge Results Procedures and tests throughout hospitalization: Pending Orders 02/19/17 17:13 JAK2 Mutation Analysis Routine 02/19/17 18:31 Cytology Request Stat 02/19/17 19:58 AFB Culture/Smears Stat Fungal Culture w/ Prep Stat 02/26/17 08:40 Cytology Request Stat 02/27/17 08:39 Cytology Request Stat 02/27/17 12:49 IR lumbar puncture diagnostic Stat 02/27/17 15:08 CSF Culture and Gram Stain Stat Cytomegalovirus (CMV), PCR Stat Fungal Culture w/ Prep Stat HSV PCR Other Sources Stat Herpes Simplex Virus,PCR,CSF Stat Meningitis Ags w/CSF Cult/Smea Stat Mycobacterium tuberculosis PCR Stat VDRL Spinal Fluid Stat Viral Culture, Non-Respiratory Stat 02/28/17 04:00 XR chest 1V portable IN AM ABG [Arterial Blood Gas] IN AM Comp Blood Count Auto Diff IN AM Magnesium Routine Phosphorous Routine Prealbumin Routine 03/01/17 04:00 XR chest 1V portable IN AM ABG [Arterial Blood Gas] IN AM Labs on day of discharge: Labs from last 24 hours 02/27/17 02/27/17 02/27/17 15:08 12:10 11:30 WBC RBC Hgb Hct MCV MCH MCHC RDW Plt Count MPV Neut % (Auto) Lymph % (Auto) [place] % (Auto) Eos % (Auto) Baso % (Auto) Neut # (Auto) Lymph # (Auto) [place] # (Auto) Eos # (Auto) Baso # (Auto) Immature Gran % Nucleated RBC % Immature Gran # Nucleated RBCs # ABG pH ABG pCO2 ABG pO2 ABG HCO3 ABG Total CO2 ABG O2 Saturation ABG Base Excess FiO2 Sodium Potassium Chloride Carbon Dioxide Anion Gap BUN Creatinine GFR Calculation BUN/Creatinine Ratio Glucose POC Glucose 289 H Calculated Osmolality Calcium Total Bilirubin AST ALT Alkaline Phosphatase Total Protein Albumin Globulin Albumin/Globulin Ratio CSF Appearance Clear CSF Color Colorless CSF WBC 38 CSF RBC < 1 CSF Diff Total Count 12 CSF Lymphocytes 92 CSF Monocytes 8 CSF Glucose 147 H CSF Total Protein 43 Vancomycin Trough 27.9 H 02/27/17 02/27/17 02/27/17 08:47 08:47 05:38 WBC 18.2 H RBC 3.84 Hgb 11.1 L Hct 35.6 L MCV 92.7 MCH 29 MCHC 31.2 L RDW 15.7 Plt Count 212 MPV 12.1 H Neut % (Auto) 73.8 Lymph % (Auto) 8.0 L [place] % (Auto) 12.3 Eos % (Auto) 5.3 Baso % (Auto) 0.2 Neut # (Auto) 13.4 H Lymph # (Auto) 1.5 [place] # (Auto) 2.2 H Eos # (Auto) 1.0 H Baso # (Auto) 0.0 Immature Gran % 0.4 Nucleated RBC % 0.1 Immature Gran # 0.08 Nucleated RBCs # 0.02 ABG pH ABG pCO2 ABG pO2 ABG HCO3 ABG Total CO2 ABG O2 Saturation ABG Base Excess FiO2 Sodium 151 H Potassium 4.1 Chloride 118 H Carbon Dioxide 23 Anion Gap 14.1 BUN 57 H Creatinine 1.80 H GFR Calculation 49 BUN/Creatinine Ratio 31.00 H Glucose 298 H POC Glucose 318 H Calculated Osmolality 325.9 H Calcium 7.7 L Total Bilirubin < 0.39 AST 46 H ALT 61 Alkaline Phosphatase 81 Total Protein 5.3 L Albumin 1.9 L Globulin 3.4 Albumin/Globulin Ratio 0.5 L CSF Appearance CSF Color CSF WBC CSF RBC CSF Diff Total Count CSF Lymphocytes CSF Monocytes CSF Glucose CSF Total Protein Vancomycin Trough 02/27/17 02/27/17 02/27/17 04:30 04:30 03:10 WBC 18.0 H RBC 3.86 Hgb 11.4 L Hct 36.4 L MCV 94.3 MCH 30 MCHC 31.3 L RDW 15.8 Plt Count 207 D MPV 12.2 H Neut % (Auto) 74.6 H Lymph % (Auto) 7.6 L [place] % (Auto) 11.8 Eos % (Auto) 5.2 Baso % (Auto) 0.2 Neut # (Auto) 13.4 H Lymph # (Auto) 1.4 [place] # (Auto) 2.1 H Eos # (Auto) 0.9 H Baso # (Auto) 0.0 Immature Gran % 0.6 Nucleated RBC % 0.1 Immature Gran # 0.10 Nucleated RBCs # 0.02 ABG pH 7.370 ABG pCO2 37.2 ABG pO2 170.0 H ABG HCO3 21.7 ABG Total CO2 19.1 L ABG O2 Saturation 99.5 ABG Base Excess -3.3 L FiO2 50.00 Sodium 151 H Potassium 4.3 Chloride 118 H Carbon Dioxide 25 Anion Gap 12.3 BUN 57 H Creatinine 1.70 H GFR Calculation 52 BUN/Creatinine Ratio 33.00 H Glucose 303 H POC Glucose Calculated Osmolality 325.9 H Calcium 7.5 L Total Bilirubin AST ALT Alkaline Phosphatase Total Protein Albumin Globulin Albumin/Globulin Ratio CSF Appearance CSF Color CSF WBC CSF RBC CSF Diff Total Count CSF Lymphocytes CSF Monocytes CSF Glucose CSF Total Protein Vancomycin Trough 02/26/17 02/26/17 23:55 18:02 WBC RBC Hgb Hct MCV MCH MCHC RDW Plt Count MPV Neut % (Auto) Lymph % (Auto) [place] % (Auto) Eos % (Auto) Baso % (Auto) Neut # (Auto) Lymph # (Auto) [place] # (Auto) Eos # (Auto) Baso # (Auto) Immature Gran % Nucleated RBC % Immature Gran # Nucleated RBCs # ABG pH ABG pCO2 ABG pO2 ABG HCO3 ABG Total CO2 ABG O2 Saturation ABG Base Excess FiO2 Sodium Potassium Chloride Carbon Dioxide Anion Gap BUN Creatinine GFR Calculation BUN/Creatinine Ratio Glucose POC Glucose 187 H 316 H Calculated Osmolality Calcium Total Bilirubin AST ALT Alkaline Phosphatase Total Protein Albumin Globulin Albumin/Globulin Ratio CSF Appearance CSF Color CSF WBC CSF RBC CSF Diff Total Count CSF Lymphocytes CSF Monocytes CSF Glucose CSF Total Protein Vancomycin Trough Preliminary micro results at discharge 02/19/17 19:58 Fungal Culture - Preliminary Cerebral Spinal Fluid No Fungus isolated at 1 week DS: Provider Date of admission: 02/19/17 14:55 Primary care physician: Francisco Nicolas MD Attending physician on admission: Esperanza Tovar MD Consults: 02/19/17 16:00 Consult to Physician [CONS] Routine Comment: AMs Consulting Provider: Blake Lira Person Notified: SARAH Date Notified: 02/20/17 Time Notified: 09:18 Consult to Physician [CONS] Routine Comment: polycythemia, AMS Consulting Provider: Juan Smart Consult to Specialist Group: Hematology When should Consulting Provider be notified: Now Person Notified: alphonso Date Notified: 02/20/17 Time Notified: 09:02 02/19/17 16:34 Consult to Pharmacy [CONS] Routine Reason for Pharmacy Consult: Dose/Manage Antibiotics Dose/Manage Vancomycin Adjust Meds Renal Funct Comment: please adjust antibiotic doses for renal disease 02/20/17 08:28 Consult to Physician [CONS] Routine Comment: acute renal failure Consulting Provider: Mateusz Best When should Consulting Provider be notified: Now 02/20/17 13:58 Consult to Physician [CONS] Routine Comment: Consulting Provider: Nas Sauer Consulting Provider Notified: Yes Consult to Specialist Group: Pulmonology When should Consulting Provider be notified: Now Person Notified: Sol (Dr. Sauer's office) Date Notified: 02/20/17 Time Notified: 15:04 Consult Notification Comment: Called her with consult. Gave her vent settings and ABG results. 02/21/17 08:32 Consult to Dietitian [CONS] Routine Reason for Dietitian: TF-Initiate/Manage 02/26/17 11:11 Consult to Case Mgmt/Social Srvs [CONS] Routine Reason for Case Mgmt/Social Srvs: LTAC Discharging clinician: Barbara Bedoya MD
--- NOTE | 2017-02-27 17:35 | Post Interventional Procedure ---
Pre-op diagnosis: aseptic meningitis Post-op diagnosis: same Procedure: lumbar puncture Contrast: none Flouroscopy: 0.3 min Radiologist: Darwin Clay Anesthesia: local Specimens: other (CSF 10 mL, clear) Estimated blood loss: none Complications: none Condition: stable Description/Findings: Opening pressure 26 cm H2O. 10 mL clear colorless CSF removed and sent for requested studies. Sterile dressing was applied. Patient tolerated the procedure well. Assessment and Plan - Time spent with patient Time spent with patient: Less than 30 minutes
--- NOTE | 2017-02-27 17:38 | Interventional Radiology Rpt ---
Procedure: IR lumbar puncture diagnostic Clinical history: 56-year-old male with altered mental status and possible aseptic meningitis. Procedure: Informed consent was obtained prior to procedure. Formal timeout was performed. Maximum sterile barrier technique was employed. The patient was placed left lateral decubitus on the fluoroscopy table. The low back was prepped and draped in a sterile fashion. A midline lumbar puncture was then performed at the L2-L3 interspace using a 22-gauge spinal needle. Fluoroscopic guidance was used and a captured image documents the needle position. An opening pressure of 26 cm water was obtained. Subsequently, 10 milliliters of clear, colorless CSF was withdrawn and sent to laboratory. The spinal needle was removed and a bandage placed the puncture site. Fluoroscopy time: 0.3 minutes. Total number of images for the study: 15 Consultations: None. Impression: Technically successful diagnostic lumbar puncture as described. PROCEDURE INTERPRETED AT [facility] DEPARTMENT OF RADIOLOGY Final Report Signed by: Darwin Clay
--- NOTE | 2017-02-27 17:51 | Neurology Progress Note ---
Neurology - PN : Subjective Interval history: Patient seems to be doing about the same. Repeat a spinal tap report noted. Still having high WBC count at 38. Total protein is better. Patient is being transferred to [facility] Exam (Progress Note) - Constitutional Vitals: Period Temp Pulse Resp BP Sys/Spear Pulse Ox Last 24 Hr 97.2 F-98.0 F 75-95 12-27 146-170/67-86 96-100 Exam: GENERAL: Patient is in no acute distress. NECK: Neck is supple. There is no JVD. No carotid bruits present. No thyroid masses. CVS: First and second heart sounds are normal. There is no S3 present. Regular rate and rhythm. RESPIRATORY: Lungs are clear to auscultation without any rales or rhonchi. ABDOMEN: Soft and non-tender. Bowel sounds are present. There is no hepatosplenomegaly. EXT: There is no palpable edema. Peripheral pulses are present. Skin: No rashes Central Nervous system: General: On vent Speech: On vent Comprehension: Sedated Facial expressions: Normal Cranial Nerves: Pupils are equally reactive to light. Doll's head eye movements are positive. No facial asymmetry is seen. Motor: Bulk and Tone is normal. Strength cannot be assessed Sensory: Cannot be assessed Reflexes: 1+ and symmetrical Cerebellar function: Cannot be assessed Toes: Equivocal Gait: Cannot be assessed Results - Labs CBC & BMP: 02/27/17 08:47 02/27/17 08:47 Assessment and Plan (1) Altered mental status Status: Acute Assessment and plan: Continue current antibiotic coverage Patient is being transferred to [facility] Current Visit: Yes
[2017-02-27] MEDS ORDERED: MIDAZOLAM 100 MG in SODIUM CHLORIDE 0.9% 80 ML IV SCH (18:30)
[2017-02-27 18:35] VITALS: BP 149/72
[2017-02-28] MEDS ORDERED: VANCOMYCIN INJ 1,250 MG in SODIUM CHLORIDE 0.9% 250 ML IV SCH (08:00)
--- NOTE | 2017-03-01 12:16 | Pathology Report from [facility] ---
ACCESSION # : [id number] PATIENT NAME : Lopez Urias ORDERING DR : Darwin Clay MD CLINICAL HX: Aletered mental status and possible aseptic meningitis. POST-OP DX: Same SPECIMEN INFO: Fluid,CSF - 1 ml clear CLASS: I CLASS COMMENTS: No atypical cells or increased cellularity CLASS LEGEND: CLASS 0 Material inadequate for diagnosis because of (see comment) CLASS I Absence of atypical or abnormal cells CLASS II Atypical Cytology but no evidence of malignancy CLASS III Cytology suggestive of but not conclusive for malignancy CLASS IV Cytology strongly suggestive of malignancy CLASS V Cytology conclusive for malignancy SERVICE DATE: 02/28/2017 REPORT DATE: 03/01/2017 PATHOLOGIST: Ronny Zamora III, M.D. MTDD
[2017-03-01 14:47] LABS: CMV PCR Source CSF
[2017-03-02 16:06] LABS: M. Tuberculosis PCR Result Negative (Negative); M. Tuberculosis PCR Source CSF
== END 2017-02-27 19:25 | disposition hospice, home (50) | DRG 870 ==
LOC: EDUNIT# → EDBD → N.ED 12:48 → SUATTDRO 14:55 → N.EDINP 14:55 → N.2E 17:09 → N.CC 02-20 09:45
PROVIDERS: ADMIT Internal Medicine; ATTEND Internal Medicine